=== PATIENT | male | born 1945 | race Caucasian/White ===

== ENCOUNTER → 2016-09-22 | Outpatient (CLI) | payer MEDICARE, MEDICAID ==
--- NOTE | 2016-09-23 21:43 | ECHO ---
DATE OF PROCEDURE: 09/22/2016 OUTPATIENT ECHOCARDIOGRAPHIC REPORT DATE OF : 1945 Outpatient. REFERRING PHYSICIAN: Anna Craft INDICATION: Hypertension. MEASUREMENTS: 2D Measurements: RV: 3.4 cm LV: 2.8 cm Septum: 1.3 cm Posterior wall: 1.3 cm Aortic root: 3.8 cm Proximal ascending aorta: 4.2 cm LA: 4.4 cm LVEF: 75% DOPPLER MEASUREMENTS: AV: 1.7 meters per second LVOT: 1.6 meters per second LVOT diameter: 2.5 cm MV-E 60, A: 81. EA ratio: 0.7 Early mitral deceleration time: 300 milliseconds E prime: 5.8, A prime: 9, E/E prime ratio: 10.4 PV: 0.8 meters per second Pulmonary artery acceleration time: 99 milliseconds RVSP: 34 mmHg IVC: 1.8 cm COMMENTS: Normal sinus rhythm/sinus bradycardia without intraventricular conduction disturbance. Mildly dilated left atrium but normal left ventricular size. Right heart chamber sizes were also normal. LV wall thickness was mildly increased symmetrically. On real-time imaging from the parasternal and apical projections, wall motion was symmetrical and hyperkinetic. Slightly thickened mitral annulus but normal leaflet thickness and excursion with no posterior systolic buckling. Three equal size aortic cusps with mildly thickened cusp edges but adequate cusp separation. Mildly dilated aortic root size and mildly dilated proximal ascending aorta. No apparent intracardiac mass or pericardial effusion. Color flow Doppler study taken from the parasternal and apical projection showed mild eccentrically directed aortic insufficiency with only trace mitral and very mild tricuspid insufficiency. Guided continuous wave Doppler of his aortic valve showed a normal peak systolic velocity against LV outflow tract obstruction. Pulsed and continuous wave Doppler of his LV inflow tract taken from the apical four-chamber projection showed normal diastolic filling velocities against mitral stenosis. There was more prominent late diastolic/atrial dependent filling pattern consistent with LV diastolic dysfunction. This was confirmed by prolonged early mitral deceleration time and tissue Doppler of his mitral annulus. However, his current estimated mean left atrial pressure was normal. Pulsed and continuous wave Doppler of his pulmonary trunk showed a normal peak systolic velocity against RV outflow tract obstruction. His pulmonary artery acceleration time was abbreviated suggestive of a mildly increased peak pulmonary vascular resistance. Guided continuous wave Doppler of his tricuspid valve allowed our estimation of his right ventricular systolic pressure (upper limits of normal to mildly increased). His inferior vena cava was of normal size with normal respiratory collapse against an elevated central venous pressure. CONCLUSIONS: Mild concentric left ventricular hypertrophy with hyperkinetic wall motion. Mildly dilated left atrium with Doppler evidence of impairment of LV diastolic function but currently normal estimated mean left atrial pressure. Normal right heart chamber sizes and contraction with Doppler sign of mild pulmonary hypertension. Normal IVC size and collapse against an elevated central venous pressure. Mild mitral annular thickening without functional valvular abnormality. Mild aortic valvular sclerosis without stenosis and only mildly insufficiency. Mildly dilated aortic root and proximal ascending aorta. We would recommend a followup study in 2 years time to reevaluate his aortic valve and proximal aortic diameters.
== END ==
LOC: M CARPUL 09:16
PROVIDERS: ATTEND Nurse Practitioner Family
DX: I10 Essential (primary) hypertension (principal)

== ENCOUNTER → 2016-10-07 | Outpatient (CLI) | payer MEDICARE, MEDICAID ==
[2016-10-07 14:09] LABS: BASO % 0.9 % (0.0-1.0); EOS # 0.3 K/mm3 (0.0-0.50); EOS % 5.1 % (0.0-3.0); LARGE UNSTAINED CELL # 0.2 K/mm3 (0.0-0.4); LARGE UNSTAINED CELL % 3.6 % (0.0-4.0); LYMPH % 50.2 % (24.0-44.0); MEAN CORPUSCULAR HEMOGLOBIN 34.6 pg (27.0-33.0); MEAN CORPUSCULAR HGB CONC 35.2 g/dl (32.0-36.5); MEAN CORPUSCULAR VOLUME 98.2 fl (80.0-96.0); MONO # 0.3 K/mm3 (0.0-0.8); NEUTROPHILS # 1.9 K/mm3 (1.8-7.7); NEUTROPHILS % 34.2 % (36.0-66.0); PLATELET COUNT, AUTOMATED 188 k/mm3 (150-450); RED CELL DISTRIBUTION WIDTH 13.2 % (11.5-14.5); WHITE BLOOD COUNT 5.6 K/mm3 (4.0-10.0)
[2016-10-07 14:29] LABS: ALBUMIN/GLOBULIN RATIO 1.29 (1.00-1.93); ALKALINE PHOSPHATASE 76 U/L (45-117); ALT/SGPT 46 U/L (12-78); ANION GAP 7 MEQ/L (8-16); AST/SGOT 26 U/L (15-37); BILIRUBIN,DIRECT 0.2 MG/DL (0.0-0.2); BILIRUBIN,TOTAL 0.7 MG/DL (0.2-1.0); BLOOD UREA NITROGEN 23 MG/DL (7-18); CALCIUM LEVEL 8.9 MG/DL (8.8-10.2); CARBON DIOXIDE LEVEL 31 MEQ/L (21-32); CHLORIDE LEVEL 105 MEQ/L (98-107); CREATININE FOR GFR 0.95 MG/DL (0.70-1.30); GLOMERULAR FILTRATION RATE > 60.0 (>49); GLUCOSE, FASTING 127 MG/DL (80-110); POTASSIUM SERUM 4.1 MEQ/L (3.5-5.1); SODIUM LEVEL 143 MEQ/L (136-145); TOTAL PROTEIN 7.1 GM/DL (6.4-8.2)
== END ==
LOC: M SMT 08:06
PROVIDERS: ATTEND Family Medicine
DX: E11.9 Type 2 diabetes mellitus without complications (principal); N40.1 Benign prostatic hyperplasia with lower urinary tract symptoms; I10 Essential (primary) hypertension; G47.33 Obstructive sleep apnea (adult) (pediatric); G47.00 Insomnia, unspecified; F32.1 Major depressive disorder, single episode, moderate
CPT/HCPCS: 36415; 80053; 82043; 82248; 83036; 85025; G0103; G0463

== ENCOUNTER → 2017-04-28 | Outpatient (REF) | payer MEDICARE, MEDICAID ==
[2017-04-28 16:11] LABS: ALBUMIN 4.2 GM/DL (3.2-5.2); ALBUMIN/GLOBULIN RATIO 1.24 (1.00-1.93); ALKALINE PHOSPHATASE 103 U/L (45-117); ALT/SGPT 34 U/L (12-78); ANION GAP 6 MEQ/L (8-16); AST/SGOT 21 U/L (7-37); BILIRUBIN,TOTAL 0.5 MG/DL (0.2-1.0); BLOOD UREA NITROGEN 16 MG/DL (7-18); CALCIUM LEVEL 8.9 MG/DL (8.8-10.2); CARBON DIOXIDE LEVEL 34 MEQ/L (21-32); CHLORIDE LEVEL 102 MEQ/L (98-107); CREATININE FOR GFR 0.88 MG/DL (0.70-1.30); GLOMERULAR FILTRATION RATE > 60.0 (>49); GLUCOSE, FASTING 93 MG/DL (70-100); POTASSIUM SERUM 4.1 MEQ/L (3.5-5.1); SODIUM LEVEL 142 MEQ/L (136-145); TOTAL PROTEIN 7.6 GM/DL (6.4-8.2)
[2017-04-28 16:13] LABS: ESTIMATED AVERAGE GLUCOSE 146 MG/DL (60-110); HEMOGLOBIN A1c 6.7 %
== END ==
LOC: M SFHCPLAZ 13:41
DX: I10 Essential (primary) hypertension (principal); E11.9 Type 2 diabetes mellitus without complications
CPT/HCPCS: 80053

== ENCOUNTER → 2017-05-02 | Outpatient (CLI) | payer MEDICARE, MEDICAID, OTHER ==
[2017-05-02 14:04] LABS: PSA SCREENING 0.19 NG/ML (< 4.0)
== END ==
LOC: M SMT 11:18
DX: Z12.5 Encounter for screening for malignant neoplasm of prostate (principal)
CPT/HCPCS: G0103

== ENCOUNTER → 2017-05-06 | Outpatient (CLI) | payer MEDICARE, OTHER | LOC: M SMT 12:29 | DX: N40.1 Benign prostatic hyperplasia with lower urinary tract symptoms (principal); R35.1 Nocturia | CPT/HCPCS: 76857 ==

== ENCOUNTER → 2017-10-17 | Outpatient (REF) | payer MEDICARE, MEDICAID ==
[2017-10-17 13:57] LABS: ALBUMIN 4.2 GM/DL (3.2-5.2); ALBUMIN/GLOBULIN RATIO 1.17 (1.00-1.93); ALKALINE PHOSPHATASE 73 U/L (45-117); ALT/SGPT 45 U/L (12-78); ANION GAP 8 MEQ/L (8-16); AST/SGOT 28 U/L (7-37); BILIRUBIN,TOTAL 0.6 MG/DL (0.2-1.0); BLOOD UREA NITROGEN 13 MG/DL (7-18); CARBON DIOXIDE LEVEL 32 MEQ/L (21-32); CHLORIDE LEVEL 102 MEQ/L (98-107); CHOLESTEROL LEVEL 85 MG/DL (<200); CHOLESTEROL RISK RATIO 2.023 (<5); CREATININE FOR GFR 0.86 MG/DL (0.70-1.30); GLOMERULAR FILTRATION RATE > 60.0 (>42); GLUCOSE, FASTING 127 MG/DL (70-100); HDL CHOLESTEROL 42 MG/DL (>40); LDL CHOLESTEROL 20.6 MG/DL (<100); NON-HDL-C 43 MG/DL; SODIUM LEVEL 142 MEQ/L (136-145); TOTAL PROTEIN 7.8 GM/DL (6.4-8.2); TRIGLYCERIDES LEVEL 112 MG/DL (<150)
[2017-10-17 14:02] LABS: CREATININE, URINE 15.1 MG/DL; MALB URINE SIEMENS 22.3 MG/L; MAU/CREAT RATIO 147.6 MCG/MG (0.0-30.0)
[2017-10-17 15:03] LABS: ESTIMATED AVERAGE GLUCOSE 140 MG/DL (60-110); HEMOGLOBIN A1c 6.5 %
== END ==
LOC: M SFHCPLAZ 10:10
DX: I10 Essential (primary) hypertension (principal); E11.9 Type 2 diabetes mellitus without complications; E78.1 Pure hyperglyceridemia
CPT/HCPCS: 80053

== ENCOUNTER → 2017-11-25 | Outpatient (CLI) | payer MEDICARE, MEDICAID | LOC: M SMT 15:03 | DX: E78.1 Pure hyperglyceridemia (principal); G47.00 Insomnia, unspecified; E11.40 Type 2 diabetes mellitus with diabetic neuropathy, unspecified | CPT/HCPCS: 84443 ==

== ENCOUNTER → 2018-02-03 | Outpatient (REF) | payer MEDICARE, MEDICAID ==
[2018-02-03 12:57] LABS: ALBUMIN 3.8 GM/DL (3.2-5.2); ALBUMIN/GLOBULIN RATIO 1.09 (1.00-1.93); ALKALINE PHOSPHATASE 79 U/L (45-117); ALT/SGPT 70 U/L (12-78); ANION GAP 7 MEQ/L (8-16); AST/SGOT 33 U/L (7-37); BILIRUBIN,TOTAL 0.6 MG/DL (0.2-1.0); BLOOD UREA NITROGEN 14 MG/DL (7-18); CALCIUM LEVEL 8.5 MG/DL (8.8-10.2); CARBON DIOXIDE LEVEL 33 MEQ/L (21-32); CHLORIDE LEVEL 101 MEQ/L (98-107); CREATININE FOR GFR 0.93 MG/DL (0.70-1.30); GLOMERULAR FILTRATION RATE > 60.0 (>42); GLUCOSE, FASTING 104 MG/DL (70-100); POTASSIUM SERUM 3.6 MEQ/L (3.5-5.1); SODIUM LEVEL 141 MEQ/L (136-145); TOTAL PROTEIN 7.3 GM/DL (6.4-8.2)
[2018-02-03 15:46] LABS: ESTIMATED AVERAGE GLUCOSE 154 MG/DL (60-110)
== END ==
LOC: M SFHCPLAZ 10:04
DX: E11.40 Type 2 diabetes mellitus with diabetic neuropathy, unspecified (principal)
CPT/HCPCS: 80053

== ENCOUNTER → 2018-04-14 | Outpatient (REF) | payer MEDICARE, MEDICAID | LOC: M SFHCPLAZ 17:21 | PROVIDERS: ATTEND Dermatology | DX: L30.8 Other specified dermatitis (principal) ==

== ENCOUNTER → 2018-05-11 | Outpatient (REF) | payer MEDICARE, MEDICAID ==
[2018-05-11 18:37] LABS: HEMOGLOBIN A1c 7.4 %
[2018-05-11 18:45] LABS: ALBUMIN 4.3 GM/DL (3.2-5.2); ALT/SGPT 53 U/L (12-78); BILIRUBIN,TOTAL 0.6 MG/DL (0.2-1.0); BLOOD UREA NITROGEN 16 MG/DL (7-18); CARBON DIOXIDE LEVEL 34 MEQ/L (21-32); CHLORIDE LEVEL 100 MEQ/L (98-107); CREATININE FOR GFR 0.94 MG/DL (0.70-1.30); GLOMERULAR FILTRATION RATE > 60.0 (>42); GLUCOSE, FASTING 132 MG/DL (70-100); POTASSIUM SERUM 3.5 MEQ/L (3.5-5.1); SODIUM LEVEL 140 MEQ/L (136-145); TOTAL PROTEIN 7.7 GM/DL (6.4-8.2)
== END ==
LOC: M SFHCPLAZ 15:36
PROVIDERS: ATTEND Nurse Practitioner Family
DX: I10 Essential (primary) hypertension (principal); E78.1 Pure hyperglyceridemia; E11.9 Type 2 diabetes mellitus without complications
CPT/HCPCS: 36415; 80053; 83036; G0463

== ENCOUNTER → 2018-08-07 | Outpatient (REF) | payer MEDICARE, MEDICAID ==
[2018-08-07 13:13] LABS: HEMOGLOBIN A1c 7.2 %
[2018-08-07 13:28] LABS: ALBUMIN 4.1 GM/DL (3.2-5.2); ALT/SGPT 64 U/L (12-78); BILIRUBIN,TOTAL 0.6 MG/DL (0.2-1.0); BLOOD UREA NITROGEN 13 MG/DL (7-18); CALCIUM LEVEL 9.3 MG/DL (8.8-10.2); CARBON DIOXIDE LEVEL 35 MEQ/L (21-32); CHLORIDE LEVEL 103 MEQ/L (98-107); CREATININE FOR GFR 0.89 MG/DL (0.70-1.30); GLOMERULAR FILTRATION RATE > 60.0 (>42); GLUCOSE, FASTING 107 MG/DL (70-100); POTASSIUM SERUM 3.4 MEQ/L (3.5-5.1); SODIUM LEVEL 142 MEQ/L (136-145); TOTAL PROTEIN 7.6 GM/DL (6.4-8.2)
== END ==
LOC: M SFHCPLAZ 10:49
PROVIDERS: ATTEND Nurse Practitioner Family
DX: I10 Essential (primary) hypertension (principal); E11.9 Type 2 diabetes mellitus without complications
CPT/HCPCS: 36415; 80053; 83036; G0463

== ENCOUNTER → 2019-07-30 | Outpatient (REF) | payer MEDICARE, MEDICAID ==
[2019-07-30 14:30] LABS: HEMOGLOBIN A1c 7.2 %
[2019-07-30 14:32] LABS: ALBUMIN 4.2 GM/DL (3.2-5.2); ALT/SGPT 68 U/L (12-78); BILIRUBIN,TOTAL 1.1 MG/DL (0.2-1.0); BLOOD UREA NITROGEN 28 MG/DL (7-18); CARBON DIOXIDE LEVEL 31 MEQ/L (21-32); CHLORIDE LEVEL 103 MEQ/L (98-107); CHOLESTEROL LEVEL 87 MG/DL (<200); CHOLESTEROL RISK RATIO 2.175 (<5); CREATININE FOR GFR 0.99 MG/DL (0.70-1.30); GLOMERULAR FILTRATION RATE > 60.0 (>42); GLUCOSE, FASTING 131 MG/DL (70-100); HDL CHOLESTEROL 40 MG/DL (>40); LDL CHOLESTEROL 35 MG/DL (<100); NON-HDL-C 47 MG/DL; POTASSIUM SERUM 3.9 MEQ/L (3.5-5.1); SODIUM LEVEL 139 MEQ/L (136-145); TOTAL PROTEIN 7.5 GM/DL (6.4-8.2); TRIGLYCERIDES LEVEL 62 MG/DL (<150)
== END ==
LOC: M PLALAB 11:13
PROVIDERS: ATTEND Family Medicine
DX: E11.40 Type 2 diabetes mellitus with diabetic neuropathy, unspecified (principal); I10 Essential (primary) hypertension; Z13.220 Encounter for screening for lipoid disorders

== ENCOUNTER 2019-09-27 13:10 | Inpatient (IN) | payer MEDICARE, MEDICAID ==
[2019-09-27] MEDS ORDERED: ISOVUE-370 76% 100ML VIAL As Ordered ONE (17:40)
[2019-09-28] MEDS ORDERED: GABAPENTIN 300 MG CAP As Ordered ONE ×2 (00:18→20:00)
[2019-09-28] MEDS ORDERED: HumaLOG INSULIN (NovoLOG) PER UNIT As Ordered ONE ×2 (13:04→18:34)
[2019-09-28] MEDS ORDERED: GABAPENTIN 300 MG CAP ONE (20:00)
[2019-09-29] MEDS ORDERED: LOSARTAN 50MG TABLET As Ordered ONE (11:58)
[2019-10-25 12:41] LABS: INR 1.12; PARTIAL THROMBOPLASTIN TIME 29.7 SECONDS (25.0-38.4); PROTHROMBIN TIME 14.7 SECONDS (11.8-14.0)
[2019-10-25 13:45] LABS: BASO % 0.3 % (0.0-1.0); EOS % 0.3 % (0.0-3.0); ERYTHROCYTE SEDIMENTATION RATE 35 mm/hr (0-20); HEMATOCRIT 34.3 % (42.0-52.0); HEMOGLOBIN 11.5 g/dl (13.5-17.5); LYMPH # 1.4 10^3/uL (1.5-5.0); LYMPH % 15.5 % (24.0-44.0); MEAN CORPUSCULAR HEMOGLOBIN 34.5 pg (27.0-33.0); MEAN CORPUSCULAR HGB CONC 33.5 g/dl (32.0-36.5); MONO # 0.5 10^3/uL (0.0-0.8); MONO % 6.1 % (0.0-5.0); NEUTROPHILS # 6.9 10^3/uL (1.5-8.5); NEUTROPHILS % 77.5 % (36.0-66.0); PLATELET COUNT, AUTOMATED 208 10^3/uL (150-450); RED BLOOD COUNT 3.33 10^6/uL (4.30-6.10); WHITE BLOOD COUNT 8.9 10^3/uL (4.0-10.0)
[2019-10-25 13:45] LABS: HEMATOCRIT 28.9 % (42.0-52.0); HEMOGLOBIN 9.6 g/dl (13.5-17.5)
--- NOTE | 2019-11-08 10:40 | ECGEPIP ---
SINUS RHYTHM WITH OCCASIONAL SUPRAVENTRICULAR PREMATURE COMPLEXES NONSPECIFIC T-WAVE ABNORMALITY BORDERLINE ECG SEE SCANNED DOWNTIME REPORT MTDD
[2019-11-11 17:40] LABS: ALBUMIN 3.4 GM/DL (3.2-5.2); ALT/SGPT 24 U/L (12-78); BILIRUBIN,DIRECT 0.1 MG/DL (0.0-0.2); BILIRUBIN,TOTAL 0.4 MG/DL (0.2-1.0); BLOOD UREA NITROGEN 22 MG/DL (7-18); C REACTIVE PROTEIN QUANTITATIV 1.66 MG/DL (0.00-0.30); CALCIUM LEVEL 8.3 MG/DL (8.8-10.2); CARBON DIOXIDE LEVEL 31 MEQ/L (21-32); CHLORIDE LEVEL 108 MEQ/L (98-107); CREATININE FOR GFR 1.19 MG/DL (0.70-1.30); GLOMERULAR FILTRATION RATE > 60.0 (>42); GLUCOSE, FASTING 205 MG/DL (70-100); POTASSIUM SERUM 3.7 MEQ/L (3.5-5.1); SODIUM LEVEL 142 MEQ/L (136-145); TOTAL PROTEIN 6.3 GM/DL (6.4-8.2)
[2019-11-14 21:09] LABS: HEMATOCRIT 22.9 % (42.0-52.0); HEMOGLOBIN 7.8 g/dl (13.5-17.5); MEAN CORPUSCULAR HEMOGLOBIN 32.9 pg (27.0-33.0); MEAN CORPUSCULAR HGB CONC 34.1 g/dl (32.0-36.5); MEAN CORPUSCULAR VOLUME 96.6 fl (80.0-96.0); PLATELET COUNT, AUTOMATED 142 10^3/uL (150-450); RED BLOOD COUNT 2.37 10^6/uL (4.30-6.10); WHITE BLOOD COUNT 5.9 10^3/uL (4.0-10.0)
[2019-11-14 21:12] LABS: BASO % 0.3 % (0.0-1.0); EOS % 0.4 % (0.0-3.0); HEMATOCRIT 27.6 % (42.0-52.0); HEMOGLOBIN 9.2 g/dl (13.5-17.5); LYMPH # 2.6 10^3/uL (1.5-5.0); LYMPH % 37.2 % (24.0-44.0); MEAN CORPUSCULAR HEMOGLOBIN 32.6 pg (27.0-33.0); MEAN CORPUSCULAR HGB CONC 33.3 g/dl (32.0-36.5); MEAN CORPUSCULAR VOLUME 97.9 fl (80.0-96.0); MONO # 0.4 10^3/uL (0.0-0.8); MONO % 6.2 % (0.0-5.0); NEUTROPHILS # 3.8 10^3/uL (1.5-8.5); NEUTROPHILS % 55.6 % (36.0-66.0); PLATELET COUNT, AUTOMATED 147 10^3/uL (150-450); RED BLOOD COUNT 2.82 10^6/uL (4.30-6.10); WHITE BLOOD COUNT 6.9 10^3/uL (4.0-10.0)
[2019-11-14 21:12] LABS: BASO % 0.3 % (0.0-1.0); EOS % 0.6 % (0.0-3.0); HEMATOCRIT 25.2 % (42.0-52.0); HEMOGLOBIN 8.5 g/dl (13.5-17.5); LYMPH # 2.5 10^3/uL (1.5-5.0); LYMPH % 39.4 % (24.0-44.0); MEAN CORPUSCULAR HEMOGLOBIN 32.8 pg (27.0-33.0); MEAN CORPUSCULAR HGB CONC 33.7 g/dl (32.0-36.5); MEAN CORPUSCULAR VOLUME 97.3 fl (80.0-96.0); MONO # 0.5 10^3/uL (0.0-0.8); MONO % 7.7 % (0.0-5.0); NEUTROPHILS # 3.2 10^3/uL (1.5-8.5); NEUTROPHILS % 51.8 % (36.0-66.0); PLATELET COUNT, AUTOMATED 148 10^3/uL (150-450); RED BLOOD COUNT 2.59 10^6/uL (4.30-6.10); WHITE BLOOD COUNT 6.2 10^3/uL (4.0-10.0)
[2019-11-14 21:13] LABS: HEMATOCRIT 27.1 % (42.0-52.0); HEMOGLOBIN 9.2 g/dl (13.5-17.5)
[2019-11-16 14:31] LABS: BASO % 0.5 % (0.0-1.0); EOS # 0.1 10^3/uL (0.0-0.5); EOS % 1.9 % (0.0-3.0); HEMATOCRIT 25.4 % (42.0-52.0); HEMOGLOBIN 8.6 g/dl (13.5-17.5); LYMPH # 2.3 10^3/uL (1.5-5.0); LYMPH % 40.6 % (24.0-44.0); MEAN CORPUSCULAR HGB CONC 33.9 g/dl (32.0-36.5); MEAN CORPUSCULAR VOLUME 97.3 fl (80.0-96.0); MONO # 0.3 10^3/uL (0.0-0.8); MONO % 5.7 % (0.0-5.0); NEUTROPHILS # 2.9 10^3/uL (1.5-8.5); NEUTROPHILS % 50.9 % (36.0-66.0); PLATELET COUNT, AUTOMATED 151 10^3/uL (150-450); RED BLOOD COUNT 2.61 10^6/uL (4.30-6.10); WHITE BLOOD COUNT 5.7 10^3/uL (4.0-10.0)
[2019-12-17 09:46] LABS: BLOOD UREA NITROGEN 20 MG/DL (7-18); CALCIUM LEVEL 7.3 MG/DL (8.8-10.2); CARBON DIOXIDE LEVEL 30 MEQ/L (21-32); CHLORIDE LEVEL 114 MEQ/L (98-107); CREATININE FOR GFR 0.79 MG/DL (0.70-1.30); GLOMERULAR FILTRATION RATE > 60.0 (>42); GLUCOSE, FASTING 112 MG/DL (70-100); POTASSIUM SERUM 3.8 MEQ/L (3.5-5.1); SODIUM LEVEL 146 MEQ/L (136-145)
[2019-12-17 12:54] LABS: HEMOGLOBIN A1c 6.3 %
[2019-12-24 19:44] LABS: BLOOD UREA NITROGEN 6 MG/DL (7-18); CARBON DIOXIDE LEVEL 31 mmol/L (20-29); CHLORIDE LEVEL 113 MEQ/L (98-107); GLOMERULAR FILTRATION RATE > 60.0 (>42); GLUCOSE, FASTING 100 MG/DL (70-100); POTASSIUM SERUM 3.7 MEQ/L (3.5-5.1); SODIUM LEVEL 147 MEQ/L (136-145)
[2019-12-24 19:45] LABS: CALCIUM LEVEL 7.8 MG/DL (8.8-10.2)
== END 2019-09-29 14:10 | disposition home or self-care (01) | DRG 378 ==
LOC: M ED 13:10 → M PCU 20:45
PROVIDERS: ADMIT Internal Medicine; ATTEND Internal Medicine
PROC: 30233N1 Transfusion of Nonautologous Red Blood Cells into Peripheral Vein, Percutaneous Approach (ICD-10-PCS; principal; 2019-09-27)
DX: K92.1 Melena (principal); D62 Acute posthemorrhagic anemia; I10 Essential (primary) hypertension; R00.0 Tachycardia, unspecified; R55 Syncope and collapse; N40.0 Benign prostatic hyperplasia without lower urinary tract symptoms; G47.33 Obstructive sleep apnea (adult) (pediatric); E11.9 Type 2 diabetes mellitus without complications; Z79.899 Other long term (current) drug therapy

== ENCOUNTER → 2019-12-06 | Outpatient (REF) | payer MEDICARE, MEDICAID ==
[~2019-12-06] MED LIST: AMLO1TAB25 PO; ATOR1TAB21 PO; COLA100C5 PO; DUTA1CAP2 PO; FERR325T16 PO; FERR325T3 PO; GABA-843 PO; IRBE150T14 PO; MED REC COMMENT; METF500T13 PO; PANT40TA29 PO; SENN8.6T58 PO; TAMS1CAP17 PO
== END ==
LOC: M SMT 12:58
PROVIDERS: ATTEND Urology
DX: N40.1 Benign prostatic hyperplasia with lower urinary tract symptoms (principal); R39.15 Urgency of urination

== ENCOUNTER 2019-12-11 16:43 | Inpatient (IN) | payer MEDICARE, MEDICAID ==
[~2019-12-11] VITALS: Ht 172.7 cm; Wt 92.1 kg
[2019-12-11] MEDS ORDERED: IRBE150T14 PO (16:55)
[2019-12-11] MEDS ORDERED: PANT40TA29 PO (16:55)
[2019-12-11] MEDS ORDERED: TAMS1CAP17 PO (16:55)
[2019-12-11] MEDS ORDERED: DUTA1CAP2 PO (16:55)
[2019-12-11] MEDS ORDERED: GABA-843 PO (16:55)
[2019-12-11] MEDS ORDERED: ATOR1TAB21 PO (16:55)
[2019-12-11] MEDS ORDERED: AMLO1TAB25 PO (16:55)
[2019-12-11] MEDS ORDERED: FERR325T3 PO (16:55)
[2019-12-11] MEDS ORDERED: METF500T13 PO (16:55)
[2019-12-11 17:33] LABS: BASO % 0.3 % (0.0-1.0); EOS % 0.3 % (0.0-3.0); HEMATOCRIT 39.5 % (42.0-52.0); HEMOGLOBIN 12.6 g/dl (13.5-17.5); LYMPH # 1.9 10^3/uL (1.5-5.0); LYMPH % 29.9 % (24.0-44.0); MEAN CORPUSCULAR HEMOGLOBIN 29.7 pg (27.0-33.0); MEAN CORPUSCULAR HGB CONC 31.9 g/dl (32.0-36.5); MEAN CORPUSCULAR VOLUME 93.2 fl (80.0-96.0); MONO # 0.5 10^3/uL (0.0-0.8); MONO % 7.9 % (0.0-5.0); NEUTROPHILS % 61.4 % (36.0-66.0); PLATELET COUNT, AUTOMATED 200 10^3/uL (150-450); RED BLOOD COUNT 4.24 10^6/uL (4.30-6.10); WHITE BLOOD COUNT 6.5 10^3/uL (4.0-10.0)
--- NOTE | 2019-12-11 17:48 | REPVR ---
PROCEDURE INFORMATION: Exam: XR Chest, 1 View Exam date and time: 12/11/2019 5:28 PM Age: 74 years old Clinical indication: Other: High BP; Additional info: Dyspnea/cough TECHNIQUE: Imaging protocol: XR of the chest Views: 1 view. COMPARISON: No relevant prior studies available. FINDINGS: Lungs: Unremarkable. No consolidation. Pleural space: Unremarkable. No pleural effusion. No pneumothorax. Heart/Mediastinum: Unremarkable. No cardiomegaly. Diaphragm: There is elevation of left hemidiaphragm. Bones/joints: Unremarkable. IMPRESSION: No acute findings. Electronically signed by: Jacob Hector On 12/11/2019 17:48:07 PM
[2019-12-11 18:00] LABS: ALBUMIN 4.1 GM/DL (3.2-5.2); BILIRUBIN,DIRECT 0.2 MG/DL (0.0-0.2); BILIRUBIN,TOTAL 0.6 MG/DL (0.2-1.0); TOTAL PROTEIN 7.7 GM/DL (6.4-8.2)
[2019-12-11] MEDS ORDERED: amLODIPine 10 MG TAB PO ONE (18:00)
[2019-12-11] MEDS ORDERED: POTASSIUM CHLORIDE 10 MEQ SR TABLET PO ONE (18:00)
[2019-12-11] MEDS ORDERED: FUROSEMIDE 40MG/4ML VIAL (J1940) IV ONE (18:00)
[2019-12-11] MEDS ORDERED: ISOVUE-370 76% 100ML VIAL As Ordered ONE (18:02)
--- NOTE | 2019-12-11 18:40 | REPVR ---
PROCEDURE INFORMATION: Exam: CT Angiography Chest With Contrast Exam date and time: 12/11/2019 6:16 PM Age: 74 years old Clinical indication: Chest pain TECHNIQUE: Imaging protocol: Computed tomographic angiography of the chest with intravenous contrast. 3D rendering (Not supervised by radiologist): MIP and/or 3D reconstructed images were created by the technologist. Radiation optimization: All CT scans at this facility use at least one of these dose optimization techniques: automated exposure control; mA and/or kV adjustment per patient size (includes targeted exams where dose is matched to clinical indication); or iterative reconstruction. Contrast material: ISO 370; Contrast volume: 75 ml; Contrast route: INTRAVENOUS (IV); COMPARISON: CR PORTABLE CHEST X-RAY 12/11/2019 5:17 PM FINDINGS: Pulmonary arteries: No evidence of pulmonary artery emboli. Aorta: No evidence of thoracic aortic aneurysm or dissection. Lungs: There is minor dependent atelectasis. No consolidation. Pleural space: Unremarkable. No pneumothorax. No pleural effusion. Heart: Unremarkable. No cardiomegaly. No pericardial effusion. Lymph nodes: Unremarkable. No enlarged lymph nodes. Gallbladder and bile ducts: The gallbladder is partly visible and there are calcified gallstones. Kidneys and ureters: The kidneys are partly visible in there is a 9 cm left renal upper pole simple cyst. Additional cysts are partly visualized. These were better evaluated on recent abdominal CT. Bones/joints: There are degenerative changes of the thoracic spine. No fracture. Soft tissues: Unremarkable. IMPRESSION: 1. No pulmonary emboli. 2. No acute findings. COMMENTS: Consistent with the [employer]'s Incidental Findings Committee white paper (J Am Katie Radiol 2018): Any incidental renal lesion less than 1 cm or classified as too small to characterize, or any incidental cystic renal lesion characterized as simple-appearing, is likely benign. No follow-up imaging is recommended for these lesions per consensus recommendations based on imaging criteria. Electronically signed by: Jacob Hector On 12/11/2019 18:40:12 PM
[2019-12-11] MEDS ORDERED: MED REC COMMENT (18:42)
[2019-12-11] MEDS ORDERED: MAALOX 30 ML SUSP *UDC PO PRN (19:45)
[2019-12-11] MEDS ORDERED: MOM 30ML SUSPENSION UDC PO PRN (19:45)
[2019-12-11] MEDS ORDERED: ACETAMINOPHEN TAB 650MG DOSE (2X325MG) PO PRN (19:45)
--- NOTE | 2019-12-11 19:59 | HPEPDOC ---
[facility] Medical History & Physical Date of Admission Dec 11, 2019 Date of Service: Dec 11, 2019 Primary Care Physician: Kenn Villanueva MD Attending Physician: HIEN MAHMOOD MD History and Physical TIME OF SERVICE: 8:27 PM CHIEF COMPLAINT: Shortness of breath and chest discomfort HISTORY OF PRESENT ILLNESS: This 74-year-old gentleman came to the hospital today for evaluation of transient mid chest discomfort associated with shortness of breath, headache, and lower back pain. He denied feeling dizzy, having blurry vision. He ran out of his blood pressure medications a few days ago, and called his PCPs office to have the medications refilled. According to the patient will take a few days for his medications to arrive. Per discussion with Dr. Cruz. His blood pressure was as high as 221/115 in the ER. The patient reports his systolic blood pressures usually in the 130s. Per Dr. Cruz despite a mildly elevated BNP the chest x-ray showed findings consistent with congestion including Kiersten b lines. CT of the chest was negative for dissection. She discussed these findings with Dr. Patton, who added that the patient had an echo done in 2017 that showed left ventricular hypertrophy, aortic insufficiency, diastolic dysfunction, and left atrial enlargement. He recommended admitting the patient, starting Lasix, amlodipine, repleting potassium and ordering another echo; he will see the patient in the morning. The patient reports urinating several times after receiving Lasix and that his back pain resolved after he received Lasix. REVIEW OF SYSTEMS: 12 point review of systems negative except as listed in HPI PAST MEDICAL/ SURGICAL HISTORY: History of noncompliance per Dr. Cruz Chronic hypertension NIDDM Chronic diastolic CHF Aortic insufficiency ASHLEY [id number] He denies having a CVA or HI SOCIAL HISTORY: He doesn't smoke He drinks alcohol socially He has a remote history of THC use FAMILY HISTORY: Mother had dementia Father had CAD and of massive heart attack ALLERGIES: Please see below. HOME MEDICATIONS: Please see below. PHYSICAL EXAMINATION: VITAL SIGNS: Please see below. GEN: well-nourished / well developed/ NAD INTEGUMENT: not flushed/ not jaundice /has multiple seborrheic keratosis on his back / decreased hair distribution on his lower legs HEENT: lips acyanotic /mucus membranes moist and pink CVS: RRR/NMRG/ radial pulses intact / no lower extremity edema LUNGS: able to speak full sentences without stopping to take a breath / no coughing / lungs are clear to auscultation bilaterally on room air ABDOMEN: Contour ( distended) / soft & not tender with palpation MSK/EXTREMITIES: NCAT / range of motion intact in all 4 extremities NEURO: CN 2-12 are grossly intact / speech is not dysarthric PSYCH: alert and oriented to person place and time/ able to understand and follow all commands LABORATORY DATA: 12/11/19 17:10 12/11/19 17:10: Immature Granulocyte % (Auto) 0.2, Neutrophils (%) (Auto) 61.4, Lymphocytes (%) (Auto) 29.9, Monocytes (%) (Auto) 7.9H, Eosinophils (%) (Auto) 0.3, Basophils (%) (Auto) 0.3, Neutrophils # (Auto) 4.0, Lymphocytes # (Auto) 1.9, Monocytes # (Auto) 0.5, Eosinophils # (Auto) 0.0, Basophils # (Auto) 0.0, Nucleated Red Blood Cells % (auto) 0.0, Total Bilirubin 0.6, Direct Bilirubin 0.2, Aspartate Amino Transf (AST/SGOT) 20, Alanine Aminotransferase (ALT/SGPT) 30, Alkaline Phosphatase 73, FA-Iof-G-Type Natriuretic Peptide 193H, Total Protein 7.7, Albumin 4.1, Albumin/Globulin Ratio 1.1 12/11/19 17:19: POC Troponin I (Misc) 0.01 12/11/19 17:26: POC Glucose (Misc Panel) 104, POC Sodium (Misc Panel) 140, POC Potassium (Misc Panel) 3.5, POC Chloride (Misc Panel) 99, POC Total CO2 (Misc Panel) 26.0, POC Blood Urea Nitrogen (Misc Panel 13, POC Ionized Calcium (Misc Panel) 4.8, POC Creatinine (Misc Panel) 1.0, POC Hematocrit (Misc Panel) 42.0 IMAGING: Chest x-ray "IMPRESSION: No acute findings" CTA chest "IMPRESSION: 1. No pulmonary emboli. 2. No acute findings." MICROBIOLOGY: Please see below. ASSESSMENT: Mr. Solorzano is a 74-year-old with a history of hypertension, ASHLEY, NIDDM, and chronic diastolic CHF, who will be admitted for management of hypertensive urgency. PLAN: 1. 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 showed sinus seng w a rate of 58 -Trop was 0.01 -Potassium, Cr & BUN were wnl Plan: admit to PCU / low salt diet / will aim for BP <160/100 tonight / resume amlodipine 10mg PO QHS / losartan 12.5mg PO QHS (he is allergic to lisinopril) / the day time team can liaise w regarding BP meds 2. Chronic Diastolic CHF Euvoemic Plan: f/u Is and Os / c/w c/w Lasix 40mg IV daily in the AM / day time team can f/u w on Echo results 3. NN Anemia Plan: f/u Iron studies and stool occult / pending results day time team may refer pt to GI for out pt c-scope if not recently done 4. NIDDM Plan: diabetic diet / f/u accuchecks & A1C / hypoglycemia protocol / sliding scale insulin / hold oral anti-glycemics 5. ASHLEY Plan: CPAP 6. Obesity BMI of 30.9 complicates care He has co-existing DM and ASHLEY He reports walking 1 mile per day Plan: encouraged patient to continue w current exercise regimen DVT PROPHYLAXIS: Lovenox DISPOSITION: possibly home tomorrow pending clinical course and Echo results Home Medications Scheduled Amlodipine Besylate (Amlodipine Besylate) 10 Mg Tablet, 10 MG PO DAILY Atorvastatin Calcium (Atorvastatin Calcium) 20 Mg Tablet, 20 MG PO QHS Docusate Sodium (Colace) 100 Mg Capsule, 100 MG PO QHS Dutasteride (Dutasteride) 0.5 Mg Capsule, 0.5 MG PO DAILY Ferrous Gluconate (Ferrous Gluconate) 324 Mg Tablet, 1 TAB PO DAILY for iron Gabapentin (Gabapentin) 300 Mg Capsule, 300 MG PO QHS Irbesartan/Hydrochlorothiazide (Irbesartan-Hctz 150-12.5 mg Tb) 1 Each Tablet, 1 TAB PO DAILY Metformin HCl (Metformin HCl) 500 Mg Tablet, 500 MG PO BID Sennosides (Senna) 8.6 Mg Tablet, 1 TAB PO QHS Tamsulosin Hcl (Tamsulosin HCl) 0.4 Mg Capsule, 0.4 MG PO QHS Miscellaneous Medications [Med Rec Comment] PT STATES NEEDS REFILLS ON MULTIPLE MEDS, HAS NOT TAKEN FOR APPROX 1 MONTH Allergies Coded Allergies: lisinopril (Verified Allergy, Severe, circumoral swelling, 12/11/19) Penicillins (Verified Allergy, Unknown, unknown childhood reaction, 12/11/19) A-FIB/CHADSVASC A-FIB History Current/History of A-Fib/PAF?: No Current PO Anticoag Therapy: No HIEN MAHMOOD MD Dec 11, 2019 19:59
[2019-12-11 20:42] LABS: HEMOGLOBIN A1c 6.2 %
[2019-12-11 20:43] LABS: PERCENT SATURATION 11.2 % (19.7-50.0)
[2019-12-11 20:50] LABS: FOLATE 15.2 NG/ML (>5.4)
[2019-12-11] MEDS ORDERED: GABAPENTIN 300 MG CAP PO SCH (21:00)
[2019-12-11] MEDS ORDERED: TAMSULOSIN 0.4 MG CAP PO SCH (21:00)
[2019-12-11] MEDS ORDERED: ATORVASTATIN 20 MG TAB PO SCH (21:00)
[2019-12-11] MEDS ORDERED: HumaLOG INSULIN (NovoLOG) PER UNIT SC SCH ×2 (21:00)
[2019-12-11] MEDS ORDERED: GLUCAGON INJ 1MG VIAL SC PRN (21:30)
[2019-12-11] MEDS ORDERED: GLUCOSE 4GM CHEW TABLET PO PRN (21:30)
[2019-12-11] MEDS ORDERED: DEXTROSE 50% 50 ML SYRINGE IV PRN (21:30)
[2019-12-11] MEDS ORDERED: PILL CUTTER 1 EACH XX PRN (22:00)
[2019-12-11] MEDS ORDERED: LOSARTAN 25 MG TAB PO SCH (23:00)
[2019-12-12] MEDS ORDERED: POTASSIUM CHLORIDE 10 MEQ SR TABLET PO ONE
--- NOTE | 2019-12-12 05:53 | ECGEPIP ---
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
[2019-12-12 06:58] LABS: HEMATOCRIT 38.9 % (42.0-52.0); HEMOGLOBIN 12.2 g/dl (13.5-17.5); MEAN CORPUSCULAR HEMOGLOBIN 29.2 pg (27.0-33.0); MEAN CORPUSCULAR HGB CONC 31.4 g/dl (32.0-36.5); MEAN CORPUSCULAR VOLUME 93.1 fl (80.0-96.0); PLATELET COUNT, AUTOMATED 188 10^3/uL (150-450); RED BLOOD COUNT 4.18 10^6/uL (4.30-6.10); WHITE BLOOD COUNT 5.5 10^3/uL (4.0-10.0)
[2019-12-12 07:24] LABS: BLOOD UREA NITROGEN 12 MG/DL (7-18); CALCIUM LEVEL 8.8 MG/DL (8.8-10.2); CARBON DIOXIDE LEVEL 31 MEQ/L (21-32); CHLORIDE LEVEL 104 MEQ/L (98-107); CREATININE FOR GFR 0.93 MG/DL (0.70-1.30); GLOMERULAR FILTRATION RATE > 60.0 (>42); GLUCOSE, FASTING 108 MG/DL (70-100); MAGNESIUM LEVEL 2.1 MG/DL (1.8-2.4); POTASSIUM SERUM 3.8 MEQ/L (3.5-5.1); SODIUM LEVEL 141 MEQ/L (136-145)
[2019-12-12] MEDS ORDERED: HumaLOG INSULIN (NovoLOG) PER UNIT SC SCH (07:30)
[2019-12-12] MEDS: HumaLOG INSULIN (NovoLOG) PER UNIT SC SCH ×2 (08:11→12:40)
[2019-12-12] MEDS: **hydrALAZINE HCL** 25 MG TAB PO SCH ×2 (08:54→12:39)
[2019-12-12] MEDS ORDERED: FUROSEMIDE 40MG/4ML VIAL (J1940) IV SCH (09:00)
[2019-12-12] MEDS ORDERED: FERROUS SULFATE 325MG TAB PO SCH (09:00)
[2019-12-12] MEDS ORDERED: ENOXAPARIN 40MG/0.4ML SYRINGE (J1650 PER 10MG) SC SCH (09:00)
[2019-12-12] MEDS ORDERED: amLODIPine 10 MG TAB PO SCH (09:00)
[2019-12-12] MEDS ORDERED: DOCUSATE SODIUM 100 MG CAP PO SCH (09:00)
[2019-12-12] MEDS ORDERED: DUTASTERIDE 0.5 MG CAP (AVODART) PO SCH (09:00)
[2019-12-12] MEDS ORDERED: LOSARTAN 25 MG TAB PO SCH (09:00)
[2019-12-12 14:29] VITALS: BP 177/86
[2019-12-12] MEDS ORDERED: AMLO1TAB25 PO (14:29)
[2019-12-12] MEDS ORDERED: IRBE150T14 PO (14:29)
[2019-12-12] MEDS ORDERED: COLA100C5 PO (14:30)
[2019-12-12] MEDS ORDERED: SENN8.6T58 PO (14:30)
[2019-12-12] MEDS ORDERED: FERR325T16 PO (14:30)
[2019-12-12 15:00] VITALS: BP 175/79
[2019-12-12] MEDS ORDERED: LOSARTAN 25 MG TAB PO ONE (15:00)
--- NOTE | 2019-12-12 15:18 | DS.PDOC ---
Discharge Summary General Date of Admission Dec 11, 2019 at 19:34 Date of Discharge 12/12/19 Discharge Summary PROCEDURES PERFORMED DURING STAY: [None]. DISCHARGE DIAGNOSES: Hypertensive urgency due to medication noncompliance Iron deficiency anemia SECONDARY DIAGNOSIS: ASHLEY on CPAP, DM, Chronic diastolic CHF, Obesity, diverticulosis, hemorrhoids, BPH, ACEI ANGIOEDEMA/URTICARIA COMPLICATIONS/CHIEF COMPLAINT: Hypertensive Urgency. HOSPITAL COURSE: Mr. Solorzano is a 74-year-old with a history of hypertension, ASHLEY, NIDDM, and chronic diastolic CHF, who will be admitted for management of hypertensive urgency as he ran out of his meds several days ago. He was restarted back on his blood pressure meds with improvement of his blood pressure. He was noted to be anemic, iron studies showed iron deficiency. He did received 2 units of blood transfusion in September 2019. He is due for repeat Colonoscopy. Discussed with his PMD and he is going to address this as an outpatient. DISCHARGE MEDICATIONS: Please see below. ALLERGIES: Please see below. PHYSICAL EXAMINATION ON DISCHARGE: VITAL SIGNS: Please see below. GEN: well-nourished / well developed/ NAD HEENT: lips acyanotic /mucus membranes moist and pink /anicteric eyes/moist mucous membranes CVS: RRR/NMRG/ radial pulses intact / no lower extremity edema LUNGS: lungs are clear to auscultation bilaterally on room air/diminished at the bases ABDOMEN: obese/soft & not tender with palpation NEURO: CN 2-12 are grossly intact / speech is not dysarthric PSYCH: alert and oriented to person place and time/ able to understand and follow all commands LABORATORY DATA: Please see below. ACTIVITY: [As tolerated]. DIET: 2 gm sodium, carb consistent DISCHARGE PLAN: Home DISCHARGE INSTRUCTIONS: Follow up with PMD in 1 week ITEMS TO FOLLOWUP ON ON OUTPATIENT: Anemia work up DISCHARGE CONDITION: [Stable]. TIME SPENT ON DISCHARGE: 35 minutes. Vital Signs/I&Os Vital Signs Date Time Temp Pulse Resp B/P (MAP) Pulse Ox O2 Delivery O2 Flow Rate FiO2 12/12/19 14:29 177/86 12/12/19 14:00 68 93 12/12/19 05:00 18 12/11/19 23:28 Full Face Mask 12/11/19 16:43 98.2 I&O- Last 24 Hours up to 6 AM 12/12/19 06:00 Output Total 1400 ml Balance -1400 ml Laboratory Data Labs 24H Laboratory Tests 2 12/11/19 17:10: Immature Granulocyte % (Auto) 0.2, Neutrophils (%) (Auto) 61.4, Lymphocytes (%) (Auto) 29.9, Monocytes (%) (Auto) 7.9H, Eosinophils (%) (Auto) 0.3, Basophils (%) (Auto) 0.3, Neutrophils # (Auto) 4.0, Lymphocytes # (Auto) 1.9, Monocytes # (Auto) 0.5, Eosinophils # (Auto) 0.0, Basophils # (Auto) 0.0, Nucleated Red Blood Cells % (auto) 0.0, Total Bilirubin 0.6, Direct Bilirubin 0.2, Aspartate Amino Transf (AST/SGOT) 20, Alanine Aminotransferase (ALT/SGPT) 30, Alkaline Phosphatase 73, SX-Wgc-W-Type Natriuretic Peptide 193H, Total Protein 7.7, Albumin 4.1, Albumin/Globulin Ratio 1.1 12/11/19 17:19: POC Troponin I (Misc) 0.01 12/11/19 17:26: POC Glucose (Misc Panel) 104, POC Sodium (Misc Panel) 140, POC Potassium (Misc Panel) 3.5, POC Chloride (Misc Panel) 99, POC Total CO2 (Misc Panel) 26.0, POC Blood Urea Nitrogen (Misc Panel 13, POC Ionized Calcium (Misc Panel) 4.8, POC Cr eatinine (Misc Panel) 1.0, POC Hematocrit (Misc Panel) 42.0 12/11/19 20:07: Estimated Mean Plasma Glucose 131H, Hemoglobin A1c 6.2, Iron Level 56L, Total Iron Binding Capacity 499H, Transferrin % Saturation 11.2L, Ferritin 8L, Vitamin B12 Level 390, Folate 15.2 12/12/19 06:29: Nucleated Red Blood Cells % (auto) 0.0, Anion Gap 6L, Glomerular Filtration Rate > 60.0, Estimated Mean Plasma Glucose 126H, Hemoglobin A1c 6.0, Calcium Level 8.8, Magnesium Level 2.1 12/12/19 12:07: Bedside Glucose (Misc Panel) 105 CBC/BMP Laboratory Tests 12/11/19 17:10 12/12/19 06:29 FSBS Laboratory Tests Test 10/21/20 12:07 Range/Units Bedside Glucose (Misc Panel) 105 83-110 MG/DL Discharge Medications Scheduled Amlodipine Besylate (Amlodipine Besylate) 10 Mg Tablet, 10 MG PO DAILY Atorvastatin Calcium (Atorvastatin Calcium) 20 Mg Tablet, 20 MG PO QHS, (Reported) Docusate Sodium (Colace) 100 Mg Capsule, 100 MG PO QHS Dutasteride (Dutasteride) 0.5 Mg Capsule, 0.5 MG PO DAILY, (Reported) Ferrous Gluconate (Ferrous Gluconate) 324 Mg Tablet, 1 TAB PO DAILY for iron Gabapentin (Gabapentin) 300 Mg Capsule, 300 MG PO QHS, (Reported) Irbesartan/Hydrochlorothiazide (Irbesartan-Hctz 150-12.5 mg Tb) 1 Each Tablet, 1 TAB PO DAILY Metformin HCl (Metformin HCl) 500 Mg Tablet, 500 MG PO BID, (Reported) Sennosides (Senna) 8.6 Mg Tablet, 1 TAB PO QHS Tamsulosin Hcl (Tamsulosin HCl) 0.4 Mg Capsule, 0.4 MG PO QHS, (Reported) Miscellaneous Medications [Med Rec Comment] , (Reported) PT STATES NEEDS REFILLS ON MULTIPLE MEDS, HAS NOT TAKEN FOR APPROX 1 MONTH Allergies Coded Allergies: lisinopril (Verified Allergy, Severe, circumoral swelling, 12/11/19) Penicillins (Verified Allergy, Unknown, unknown childhood reaction, 12/11/19) GEORGETTE POST MD Dec 12, 2019 15:18
--- NOTE | 2019-12-13 13:45 | ECHO ---
DATE OF PROCEDURE: 12/12/2019 Age: 74 Gender: Male Height: 68 inches Weight: 202 pounds Body surface area: 2.06 m2 PATIENT LOCATION: Inpatient in the emergency room. REFERRING PHYSICIAN: Luly Braxton MD. INDICATION: Hypertensive emergency/shortness of breath. MEASUREMENTS: 2D Measurements: RV 4.1 cm LV 4.0 cm Septum 1.3 cm Posterior wall 1.3 cm Aortic Root 3.6 cm LA 4.4 cm LVEF 65% Doppler Measurements: AV 1.58 m/s LVOT 0.97 m/s LVOT diameter 2.0 cm MV-E 66, A 56, E/A ratio 1.2 Early mitral deceleration time 169 m/s E prime medial 4.8, A prime medial 8.4, E prime lateral 7.1 Average E/E prime ratio 9.2/PCWP 13.4 mmHg PV 0.7 m/s Pulmonary artery acceleration time 124 m/s PASP 26 mmHg IVC 1.6 cm COMMENTS: Sinus bradycardia without intraventricular conduction disturbance. Technically difficult study in light of the patients body habitus, but diagnostically useful information was still obtained. M-mode and two-dimensional echocardiography was performed with pulse, continuous wave, color flow, and tissue Doppler studies. Mild concentric left ventricular hypertrophy with normal wall motion. Mildly dilated left atrium with currently grade 2 left ventricular (LV) diastolic dysfunction yet normal estimated mean left atrial pressure at this time. Right heart chamber is upper limits of normal with normal wall motion and current Doppler assessment of pulmonary arterial pressure. Normal inferior vena cava (IVC) size and collapse against an elevated central venous pressure. Normal aortic dimensions. Mild aortic valvular sclerosis without stenosis and only very mild insufficiency. Mild mitral annular thickening, but normal leaflet thickness and excursion without functional valvular abnormality. Normal appearing tricuspid valve with very mild insufficiency. Unable to rule out an intracardiac mass because of image quality. No pericardial effusion. MTDD
== END 2019-12-12 15:30 | disposition home or self-care (01) | DRG 305 ==
LOC: M ED 16:43 → M ED INP 19:34 → ENRESERV 12-12 15:23
PROVIDERS: ADMIT Internal Medicine; ATTEND Internal Medicine Nephrology
DX: I16.0 Hypertensive urgency (principal); I50.32 Chronic diastolic (congestive) heart failure; D50.9 Iron deficiency anemia, unspecified; E11.9 Type 2 diabetes mellitus without complications; G47.33 Obstructive sleep apnea (adult) (pediatric); E66.9 Obesity, unspecified; Z68.30 Body mass index [BMI] 30.0-30.9, adult; I35.1 Nonrheumatic aortic (valve) insufficiency; N40.0 Benign prostatic hyperplasia without lower urinary tract symptoms; K64.8 Other hemorrhoids; Z91.14 Patient's other noncompliance with medication regimen; Z79.84 Long term (current) use of oral hypoglycemic drugs; Z79.899 Other long term (current) drug therapy; Z88.0 Allergy status to penicillin; Z88.8 Allergy status to other drugs, medicaments and biological substances

== ENCOUNTER 2019-12-12 21:14 | Emergency (ER) | payer MEDICARE, MEDICAID ==
[~2019-12-12] VITALS: Ht 175.3 cm; Wt 89.4 kg
[2019-12-12] MEDS ORDERED: FUROSEMIDE 40MG/4ML VIAL (J1940) IV ONE (23:15)
[2019-12-12] MEDS ORDERED: ATORVASTATIN 20 MG TAB PO ONE (23:30)
[2019-12-13 00:11] LABS: BASO % 0.5 % (0.0-1.0); EOS # 0.1 10^3/uL (0.0-0.5); HEMATOCRIT 39.1 % (42.0-52.0); HEMOGLOBIN 12.5 g/dl (13.5-17.5); MEAN CORPUSCULAR HEMOGLOBIN 29.8 pg (27.0-33.0); MEAN CORPUSCULAR VOLUME 93.3 fl (80.0-96.0); MONO # 0.6 10^3/uL (0.0-0.8); MONO % 10.1 % (0.0-5.0); NEUTROPHILS # 3.5 10^3/uL (1.5-8.5); NEUTROPHILS % 55.6 % (36.0-66.0); PLATELET COUNT, AUTOMATED 185 10^3/uL (150-450); RED BLOOD COUNT 4.19 10^6/uL (4.30-6.10); WHITE BLOOD COUNT 6.3 10^3/uL (4.0-10.0)
[2019-12-13 00:19] LABS: BLOOD UREA NITROGEN 16 MG/DL (7-18); CALCIUM LEVEL 8.7 MG/DL (8.8-10.2); CARBON DIOXIDE LEVEL 31 MEQ/L (21-32); CHLORIDE LEVEL 103 MEQ/L (98-107); CK-MB VALUE MASS 5.7 NG/ML (<3.6); CPK CREATINE PHOSPHOKINASE 285 U/L (39-308); GLOMERULAR FILTRATION RATE > 60.0 (>42); GLUCOSE, FASTING 102 MG/DL (70-100); NT-PRO BNP 134 PG/ML (<125); POTASSIUM SERUM 3.7 MEQ/L (3.5-5.1); SODIUM LEVEL 140 MEQ/L (136-145); TROPONIN I 0.14 NG/ML (< 0.10)
--- NOTE | 2019-12-13 00:27 | REPVR ---
PROCEDURE INFORMATION: Exam: XR Chest, 2 Views Exam date and time: 12/12/2019 12:01 AM Age: 74 years old Clinical indication: Cough; Additional info: Dyspnea/cough TECHNIQUE: Imaging protocol: XR of the chest Views: 2 views. COMPARISON: CR PORTABLE CHEST X-RAY 12/11/2019 5:17 PM FINDINGS: Lungs: Unremarkable. No consolidation. Pleural space: Unremarkable. No pleural effusion. No pneumothorax. Heart/Mediastinum: Unremarkable. No cardiomegaly. Diaphragm: Severely elevated left hemidiaphragm. Bones/joints: Spondylosis of the spine. No acute fracture. IMPRESSION: 1. No acute infiltrate. 2. Severely elevated left hemidiaphragm. Electronically signed by: Nolvia Reeves On 12/13/2019 00:27:42 AM
[2019-12-13] MEDS ORDERED: ASPIRIN 325 MG TAB PO ONE (02:15)
[2019-12-13] MEDS ORDERED: HEPARIN SOD (PORCINE) 5000UNITS/ML 1ML VIAL/SYRINGE IV STA (02:38)
[2019-12-13] MEDS ORDERED: HEPARIN SOD (PORCINE) 5000UNITS/ML 1ML VIAL/SYRINGE IV PRN (02:45)
[2019-12-13] MEDS ORDERED: HEPARIN SOD (PORCINE) 5000UNITS/ML 1ML VIAL/SYRINGE IV ONE (02:45)
[2019-12-13] MEDS ORDERED: HEPARIN DRIP 25,000 UNITS in IV 1 EA IV SCH (02:50)
[2019-12-13 03:27] LABS: INR 1.02; PROTHROMBIN TIME 13.6 SECONDS (12.5-14.3)
[2019-12-13 03:28] LABS: PARTIAL THROMBOPLASTIN TIME 32.6 SECONDS (24.2-38.5)
[2019-12-13 04:09] VITALS: BP 128/73
--- NOTE | 2019-12-14 20:12 | ECGEPIP ---
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
== END 2019-12-13 04:14 | disposition short-term general hospital (02) ==
LOC: M ED 21:14
DX: I21.4 Non-ST elevation (NSTEMI) myocardial infarction (principal); I11.0 Hypertensive heart disease with heart failure; I50.9 Heart failure, unspecified; R79.89 Other specified abnormal findings of blood chemistry; E11.9 Type 2 diabetes mellitus without complications; Z88.0 Allergy status to penicillin; Z88.8 Allergy status to other drugs, medicaments and biological substances
CPT/HCPCS: 71046; 80048; 82550; 82553; 83880; 84484; 85025; 85610; 85730; 93005; 93041; 94760; 96365; 96375; 99285; J1644; J1940

== ENCOUNTER 2019-12-16 15:57 | Emergency (ER) | payer MEDICARE, MEDICAID ==
[~2019-12-16] VITALS: Ht 175.3 cm; Wt 91.6 kg
[2019-12-16 16:35] LABS: BASO % 0.4 % (0.0-1.0); EOS # 0.1 10^3/uL (0.0-0.5); EOS % 1.1 % (0.0-3.0); HEMOGLOBIN 11.8 g/dl (13.5-17.5); LYMPH # 1.5 10^3/uL (1.5-5.0); LYMPH % 28.1 % (24.0-44.0); MEAN CORPUSCULAR HEMOGLOBIN 29.1 pg (27.0-33.0); MEAN CORPUSCULAR HGB CONC 31.1 g/dl (32.0-36.5); MEAN CORPUSCULAR VOLUME 93.8 fl (80.0-96.0); MONO # 0.5 10^3/uL (0.0-0.8); MONO % 8.8 % (0.0-5.0); NEUTROPHILS # 3.2 10^3/uL (1.5-8.5); NEUTROPHILS % 61.4 % (36.0-66.0); PLATELET COUNT, AUTOMATED 181 10^3/uL (150-450); RED BLOOD COUNT 4.05 10^6/uL (4.30-6.10); WHITE BLOOD COUNT 5.2 10^3/uL (4.0-10.0)
--- NOTE | 2019-12-16 16:37 | REP ---
INDICATION: DYSPNEA/COUGH COMPARISON: 12/12/2019 TECHNIQUE: Portable AP view of the chest FINDINGS: Stable elevation to the left hemidiaphragm again noted. The cardiac silhouette and mediastinum are normal. The lung hanna demonstrate chronic appearing interstitial changes without focal consolidation, effusion, or pneumothorax. Skeletal structures are intact. IMPRESSION: Chronic stable changes. No acute cardiopulmonary process appreciated <Electronically signed by Naresh Jolly > 12/16/19 [id number]
[2019-12-16 16:43] LABS: INR 0.96
[2019-12-16 16:44] LABS: PARTIAL THROMBOPLASTIN TIME 31.5 SECONDS (24.2-38.5)
[2019-12-16 17:15] LABS: ALBUMIN 4.1 GM/DL (3.2-5.2); ALT/SGPT 31 U/L (12-78); BILIRUBIN,DIRECT 0.2 MG/DL (0.0-0.2); BILIRUBIN,TOTAL 0.5 MG/DL (0.2-1.0); BLOOD UREA NITROGEN 18 MG/DL (7-18); CALCIUM LEVEL 8.6 MG/DL (8.8-10.2); CARBON DIOXIDE LEVEL 27 MEQ/L (21-32); CHLORIDE LEVEL 105 MEQ/L (98-107); CK-MB VALUE MASS 6.9 NG/ML (<3.6); CPK CREATINE PHOSPHOKINASE 348 U/L (39-308); CREATININE FOR GFR 1.18 MG/DL (0.70-1.30); GLOMERULAR FILTRATION RATE > 60.0 (>42); GLUCOSE, FASTING 91 MG/DL (70-100); MB/CK RELATIVE INDEX 1.98 (< OR =4); NT-PRO BNP 21 PG/ML (<125); POTASSIUM SERUM 4.1 MEQ/L (3.5-5.1); SODIUM LEVEL 139 MEQ/L (136-145); TOTAL PROTEIN 7.6 GM/DL (6.4-8.2)
[2019-12-16 19:54] LABS: CK-MB VALUE MASS 6.1 NG/ML (<3.6); MB/CK RELATIVE INDEX 2.13 (< OR =4); TROPONIN I 0.09 NG/ML (< 0.10)
[2019-12-16 21:00] VITALS: BP 154/72
--- NOTE | 2019-12-18 09:02 | ECGEPIP ---
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
--- NOTE | 2019-12-18 09:05 | ECGEPIP ---
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
== END 2019-12-16 21:19 | disposition home or self-care (01) ==
LOC: M ED 15:57
DX: R06.00 Dyspnea, unspecified (principal); R53.83 Other fatigue; I10 Essential (primary) hypertension; Z79.899 Other long term (current) drug therapy; Z79.84 Long term (current) use of oral hypoglycemic drugs; Z88.0 Allergy status to penicillin; Z88.8 Allergy status to other drugs, medicaments and biological substances

== ENCOUNTER → 2020-03-04 | Outpatient (REF) | payer MEDICARE, MEDICAID ==
[~2020-03-04] MED LIST changes: +GABA-282 PO; -GABA-843 PO
[2020-03-04 13:58] LABS: HEMATOCRIT 42.9 % (42.0-52.0); HEMOGLOBIN 14.7 g/dl (13.5-17.5); MEAN CORPUSCULAR HEMOGLOBIN 33.4 pg (27.0-33.0); MEAN CORPUSCULAR HGB CONC 34.3 g/dl (32.0-36.5); MEAN CORPUSCULAR VOLUME 97.5 fl (80.0-96.0); PLATELET COUNT, AUTOMATED 219 10^3/uL (150-450); WHITE BLOOD COUNT 4.6 10^3/uL (4.0-10.0)
[2020-03-04 16:22] LABS: PERCENT SATURATION 25.1 % (19.7-50.0)
[2020-03-04 16:35] LABS: MALB URINE SIEMENS 79.8 MG/L; MAU/CREAT RATIO 63.8 MCG/MG (0.0-30.0)
[2020-03-04 16:40] LABS: HEMOGLOBIN A1c 6.6 %
== END ==
LOC: M PLALAB 10:44
PROVIDERS: ATTEND Family Medicine
DX: N40.1 Benign prostatic hyperplasia with lower urinary tract symptoms (principal); E11.9 Type 2 diabetes mellitus without complications

== ENCOUNTER → 2020-07-03 | Outpatient (REF) | payer MEDICARE, MEDICAID ==
[~2020-07-03] MED LIST changes: +FERR324T21 PO; -FERR325T16 PO
[2020-07-03 15:41] LABS: MAU/CREAT RATIO 251.5 MCG/MG (0.0-30.0)
== END ==
LOC: M SFHCPLAZ 13:28
PROVIDERS: ATTEND Family Medicine
DX: E78.1 Pure hyperglyceridemia (principal)
CPT/HCPCS: 82043; G0463

== ENCOUNTER 2020-09-13 14:43 | Emergency (ER) | payer MEDICARE, MEDICAID ==
[~2020-09-13] VITALS: Ht 175.3 cm; Wt 90.9 kg
[2020-09-13 17:30] LABS: VENOUS BASE EXCESS 4.4 (-2.0-2.0); VENOUS HCO3 31.1 MEQ/L (23.0-27.0); VENOUS O2 SATURATION 44.3 % (60.0-80.0); VENOUS PARTIAL PRESSURE CO2 54.8 mmHg (38.0-50.0); VENOUS PARTIAL PRESSURE O2 24.6 mmHg (30.0-50.0); VENOUS PH 7.372 UNITS (7.330-7.430); VENOUS STANDARD HCO3 26.9 MEQ/L; VENOUS TOTAL CO2 32.8 MEQ/L (24.0-28.0)
[2020-09-13 17:37] LABS: BASO % 0.3 % (0.0-1.0); EOS % 0.5 % (0.0-3.0); HEMATOCRIT 42.2 % (42.0-52.0); HEMOGLOBIN 14.7 g/dl (13.5-17.5); LYMPH # 1.7 10^3/uL (1.5-5.0); LYMPH % 27.3 % (24.0-44.0); MEAN CORPUSCULAR HEMOGLOBIN 34.3 pg (27.0-33.0); MEAN CORPUSCULAR HGB CONC 34.8 g/dl (32.0-36.5); MEAN CORPUSCULAR VOLUME 98.4 fl (80.0-96.0); MONO # 0.7 10^3/uL (0.0-0.8); NEUTROPHILS # 3.7 10^3/uL (1.5-8.5); NEUTROPHILS % 60.7 % (36.0-66.0); PLATELET COUNT, AUTOMATED 222 10^3/uL (150-450); RED BLOOD COUNT 4.29 10^6/uL (4.30-6.10); WHITE BLOOD COUNT 6.1 10^3/uL (4.0-10.0)
--- NOTE | 2020-09-13 17:52 | REPVR ---
PROCEDURE INFORMATION: Exam: XR Right Knee Exam date and time: 09/13/2020 5:16 PM Age: 74 years old Clinical indication: Other: Pain/swelling; Additional info: Pain/swelling ? effusion TECHNIQUE: Imaging protocol: XR Right knee. Views: 4 or more views. COMPARISON: CR KNEE COMPLETE 01/30/2015 9:56 AM FINDINGS: Bones/joints: Large knee joint effusion is suspected based on the lateral projection. Bones are aligned normally with decreased mineralization. No fracture, evidence of stress fracture or osteochondral lesion. Tricompartmental joint space narrowing and marginal spurring is consistent with OA. Incidental chondrocalcinosis changes and vascular calcifications. Calcification within joint fluid in the suprapatellar and posterior recesses. Soft tissues: No effacement of subcutaneous soft tissue planes. IMPRESSION: Tricompartmental osteoarthrosis of the knee with large joint effusion and with intracapsular and periarticular calcifications. Joint bodies related to the degenerative change cannot be excluded Electronically signed by: Rio Chand On 09/13/2020 17:51:44 PM
[2020-09-13 18:03] LABS: OSMOLALITY SERUM 290 MOSM/KG (280-301)
[2020-09-13 18:14] LABS: HEMOGLOBIN A1c 6.6 %
[2020-09-13 18:36] LABS: ERYTHROCYTE SEDIMENTATION RATE 20 mm/hr (0-20)
[2020-09-13 18:40] LABS: BLOOD UREA NITROGEN 19 MG/DL (7-18); GLUCOSE, FASTING 97 MG/DL (70-100)
[2020-09-13 18:41] LABS: ALT/SGPT 45 IU/L (0-32); CALCIUM LEVEL 8.9 MG/DL (8.8-10.2); CARBON DIOXIDE LEVEL 30 mmol/L (20-29); CHLORIDE LEVEL 104 MEQ/L (98-107); CK-MB VALUE MASS 3.2 NG/ML (<3.6); CPK CREATINE PHOSPHOKINASE 551 U/L (39-308); CREATININE FOR GFR 0.99 MG/DL (0.70-1.30); GLOMERULAR FILTRATION RATE > 60.0 (>42); MB/CK RELATIVE INDEX 0.58 (< OR =4); POTASSIUM SERUM 4.1 MEQ/L (3.5-5.1); SODIUM LEVEL 142 MEQ/L (136-145)
[2020-09-13 18:42] LABS: ALBUMIN 4.1 GM/DL (3.2-5.2); BILIRUBIN,DIRECT 0.3 MG/DL (0.0-0.2); BILIRUBIN,TOTAL 0.8 MG/DL (0.2-1.0); TOTAL PROTEIN 7.8 GM/DL (6.4-8.2); URIC ACID 4.3 MG/DL (3.5-7.2)
[2020-09-13 18:43] LABS: LIPASE 172 U/L (73-393); TROPONIN I 0.04 NG/ML (< 0.10)
[2020-09-13 18:49] LABS: ACETONE/KETONE 1.35 MG/DL (<2.81)
[2020-09-13 19:06] LABS: C REACTIVE PROTEIN QUANTITATIV 1.06 MG/DL (0.00-0.30)
[2020-09-13 21:11] LABS: SOURCE, BODY FLUID RT KNEE; SYNOVIAL FLUID COLOR YELLOW (COLORLESS)
[2020-09-13 21:24] LABS: CRYSTALS, BODY FLUID CA PYROPHOSPHATE (NONE SEEN); SOURCE, BODY FLUID CRYSTALS RT KNEE
[2020-09-13 21:26] LABS: SOURCE, BODY FLUID GLUCOSE RT KNEE
--- NOTE | 2020-09-13 21:36 | ECGEPIP ---
[facility] - ED Test Date: 2020-09-13 Pat Name: CHARLIE MARISCAL Department: Room: - Gender: Male Laboratory Specialist: MELISSA : 1945 Requested By: HOLDEN NIEVES PA-C Order Number: [id number] Reading MD: Latosha Oquendo Measurements Intervals [place] Rate: 64 P: 34 ME: 182 QRS: 43 QRSD: 98 T: 141 QT: 430 QTc: 443 Interpretive Statements Normal sinus rhythm Nonspecific T wave abnormality similar 12/16/19 Electronically Signed on 09-13-2020 21:36:11 EDT by Latosha Oquendo
[2020-09-13] MEDS ORDERED: NAPR500T6 PO (22:29)
[2020-09-13 22:57] VITALS: BP 156/79
--- NOTE | 2020-09-15 07:15 | ER ---
ER CONSULTATION DATE: 09/13/2020 TIME: About 8 p.m. CONSULTED SERVICE: Orthopaedic surgery. CONSULTED PHYSICIAN: Delfino Chase MD HISTORY OF PRESENT ILLNESS: This was a 74-year-old male who presented with a right knee effusion and difficulty with ambulation on arrival. The patient had a history of right knee osteoarthritis for which he had seen the [facility] 5 years prior. Patient presented to the [facility] Emergency Department after having increased difficulty walking and increased knee effusion. Orthopaedic surgery was consulted for further evaluation and treatment of the patient's right knee pain and right knee effusion. PAST MEDICAL HISTORY: Includes diabetes, right knee osteoarthritis, enlarged prostate, diverticulosis of the colon, hypertension, allergy to penicillin, type 2 diabetes, hyperlipidemia, depression, insomnia, obesity, polyuria. PAST SURGERIES: Unknown. ALLERGIES: PENICILLIN. SOCIAL HISTORY: Patient denies IV drug use, social drinking, unknown smoking history. REVIEW OF SYSTEMS: 14-point review of systems was negative unless as otherwise described in the history of present illness (HPI) above. PHYSICAL EXAMINATION: Alert and oriented to person, time and place, was resting comfortably on arrival. His right knee had an obvious effusion about the lateral medial aspect. Patient had difficulty with ambulation and pain with axial load of the right lower extremity. Patient's right lower extremity had 5/5 motor strength to the extensor hallucis longus (EHL), flexor hallucis longus (FHL), tibialis anterior, gastrocnemius, and peroneal musculature. Sensation was intact to light touch to the deep and superficial peroneal, sural, saphenous, and tibial nerve distributions. He had 2+ dorsalis pedis and posterior tibialis pulse and brisk capillary refill to the digits of his foot. Radiographs demonstrated a calcium buildup within the medial and lateral meniscus. He had tricompartmental osteoarthritis of the medial, lateral, and patellofemoral joints. He had significant bone loss about the three compartments as well as sclerotic changes and osteophytic lipping about the medial and lateral compartments. He had significant lateral translation of the patellofemoral joint with significant osteophyte buildup on the patellofemoral joint. No fractures were appreciated. LABORATORIES: Patient had a right knee aspiration which yielded 7053 white blood cells. He also had positive crystals consistent with calcium pyrophosphate or pseudogout. The patient was counseled on the risks and benefits of the knee aspiration to include nerve damage, blood loss, infection. Despite these risks, patient proceeded to verbally consent to the right knee aspiration. IMPRESSION: Patient has right knee pseudogout requiring medical interventions as described below. PLAN: At this point in time, the patient was diagnosed with right knee pseudogout given his knee aspiration findings. The patient did not have a septic knee as his white blood cell count was especially lower than the cutoff of 50,000, yielding only 7000. However, it was significant for crystals consistent with pseudogout. I recommend medical management at this point in time to include a nonsteroidal anti-inflammatory drug (NSAID) for acute management to include indomethacin versus colchicine. However, given his significant medical comorbidities, I would suggest that internal medicine evaluate his kidney function prior to administering heavy doses of non-steroidal anti-inflammatory drugs (NSAIDs). After acute management and treatment, the patient will likely require chronic medical management of his gout to include allopurinol if the patient is medically cleared. The patient will likely need an outpatient referral to rheumatology for continuing treatment of his pseudogout of the right knee. Thank you for this interesting consult. The patient will likely be admitted by the medicine team for medical management of this problem and likely require a rheumatology consult after treatment of this medical issue.
== END 2020-09-13 23:10 | disposition home or self-care (01) ==
LOC: M ED 14:43
DX: E11.9 Type 2 diabetes mellitus without complications (principal); M10.261 Drug-induced gout, right knee; I10 Essential (primary) hypertension; E78.5 Hyperlipidemia, unspecified; G62.9 Polyneuropathy, unspecified; G47.33 Obstructive sleep apnea (adult) (pediatric); Z79.899 Other long term (current) drug therapy; Z79.84 Long term (current) use of oral hypoglycemic drugs; Z88.0 Allergy status to penicillin; Z88.8 Allergy status to other drugs, medicaments and biological substances

== ENCOUNTER → 2020-09-22 | Outpatient (CLI) | payer MEDICARE, MEDICAID ==
[~2020-09-22] MED LIST changes: +GLIP2.5T6 PO; +NAPR500T6 PO; +TRAZ-252
[2020-09-22 10:39] LABS: HEMATOCRIT 39.7 % (42.0-52.0); HEMOGLOBIN 13.5 g/dl (13.5-17.5); MEAN CORPUSCULAR HEMOGLOBIN 33.9 pg (27.0-33.0); MEAN CORPUSCULAR VOLUME 99.7 fl (80.0-96.0); PLATELET COUNT, AUTOMATED 232 10^3/uL (150-450); RED BLOOD COUNT 3.98 10^6/uL (4.30-6.10); WHITE BLOOD COUNT 5.4 10^3/uL (4.0-10.0)
[2020-09-22 11:20] LABS: ALBUMIN 4.1 GM/DL (3.2-5.2); ALT/SGPT 39 U/L (12-78); BILIRUBIN,TOTAL 0.7 MG/DL (0.2-1.0); BLOOD UREA NITROGEN 21 MG/DL (7-18); CARBON DIOXIDE LEVEL 34 MEQ/L (21-32); CHLORIDE LEVEL 103 MEQ/L (98-107); CHOLESTEROL LEVEL 79 MG/DL (<200); CHOLESTEROL RISK RATIO 2.078 (<5); CREATININE FOR GFR 0.85 MG/DL (0.70-1.30); GLOMERULAR FILTRATION RATE > 60.0 (>42); GLUCOSE, FASTING 120 MG/DL (70-100); HDL CHOLESTEROL 38 MG/DL (>40); LDL CHOLESTEROL 25 MG/DL (<100); NON-HDL-C 41 MG/DL; SODIUM LEVEL 140 MEQ/L (136-145); TOTAL PROTEIN 6.8 GM/DL (6.4-8.2); TRIGLYCERIDES LEVEL 81 MG/DL (<150)
[2020-09-22 11:37] LABS: HEMOGLOBIN A1c 6.6 %
== END ==
LOC: M PLALAB 08:12
PROVIDERS: ATTEND Family Medicine
DX: E78.1 Pure hyperglyceridemia (principal); D50.9 Iron deficiency anemia, unspecified; I10 Essential (primary) hypertension; N40.1 Benign prostatic hyperplasia with lower urinary tract symptoms; E11.40 Type 2 diabetes mellitus with diabetic neuropathy, unspecified

== ENCOUNTER 2020-10-17 10:39 | Emergency (ER) | payer MEDICARE, MEDICAID ==
[~2020-10-17] VITALS: Ht 170.2 cm; Wt 87.5 kg
[~2020-10-17 10:39] MED LIST changes: -GLIP2.5T6 PO; -TRAZ-252
[2020-10-17 10:40] VITALS: BP 173/84
[2020-10-17] MEDS ORDERED: GLIP2.5T6 PO (13:24)
== END 2020-10-17 14:03 | disposition home or self-care (01) ==
LOC: M ED 10:39
DX: E11.65 Type 2 diabetes mellitus with hyperglycemia (principal); I10 Essential (primary) hypertension; Z88.0 Allergy status to penicillin; Z79.84 Long term (current) use of oral hypoglycemic drugs; Z79.899 Other long term (current) drug therapy

== ENCOUNTER 2020-10-20 07:57 | Emergency (ER) | payer MEDICARE, MEDICAID ==
[~2020-10-20] VITALS: Ht 172.7 cm; Wt 86.7 kg
[~2020-10-20 07:57] MED LIST changes: +GLIP2.5T6 PO
[2020-10-20] MEDS ORDERED: TRAZ-252 (08:11)
[2020-10-20 09:52] LABS: APPEARANCE, URINE CLEAR (CLEAR); BACTERIA, URINE AUTO NEGATIVE (NEGATIVE); BILIRUBIN, URINE AUTO NEGATIVE (NEGATIVE); BLOOD, URINE BLOOD NEGATIVE (NEGATIVE); COLOR, URINE YELLOW (YELLOW); GLUCOSE, URINE (UA) AUTO 3+ mg/dL (NEGATIVE); KETONE, URINE AUTO NEGATIVE (NEGATIVE); LEUKOCYTE ESTERASE, URINE AUTO NEGATIVE (NEGATIVE); MUCUS, URINE SMALL (NEGATIVE); NITRITE, URINE AUTO NEGATIVE (NEGATIVE); PROTEIN, URINE AUTO 1+ mg/dL (NEGATIVE); RBC, URINE AUTO 2 /HPF (0-3); SPECIFIC GRAVITY URINE AUTO 1.011 (1.002-1.035); SQUAMOUS EPITHELIAL CELL UR AU 0 /HPF (0-6); UROBILINOGEN, URINE AUTO 0.2 mg/dL (0.0-2.0); WBC, URINE AUTO 0 /HPF (0-3)
[2020-10-20 10:12] VITALS: BP 188/99
== END 2020-10-20 10:15 | disposition home or self-care (01) ==
LOC: M ED 07:57
DX: E11.65 Type 2 diabetes mellitus with hyperglycemia (principal); I10 Essential (primary) hypertension; G47.33 Obstructive sleep apnea (adult) (pediatric); N40.0 Benign prostatic hyperplasia without lower urinary tract symptoms; Z79.899 Other long term (current) drug therapy; Z79.84 Long term (current) use of oral hypoglycemic drugs; Z88.0 Allergy status to penicillin; Z88.8 Allergy status to other drugs, medicaments and biological substances

== ENCOUNTER → 2020-12-12 | Outpatient (REF) | payer MEDICARE, MEDICAID ==
[~2020-12-12] MED LIST changes: +TRAZ-252
== END ==
LOC: M SFHCPLAZ 13:09
DX: E11.9 Type 2 diabetes mellitus without complications (principal)

== ENCOUNTER → 2021-11-18 | Outpatient (CLI) | payer MEDICARE, MEDICAID ==
[2021-11-18 13:32] LABS: HEMATOCRIT 42.3 % (42.0-52.0); HEMOGLOBIN 14.7 g/dl (13.5-17.5); MEAN CORPUSCULAR HGB CONC 34.8 g/dl (32.0-36.5); MEAN CORPUSCULAR VOLUME 100.7 fl (80.0-96.0); PLATELET COUNT, AUTOMATED 186 10^3/uL (150-450); WHITE BLOOD COUNT 4.8 10^3/uL (4.0-10.0)
[2021-11-18 13:51] LABS: HEMOGLOBIN A1c 5.7 %
[2021-11-18 14:05] LABS: BLOOD UREA NITROGEN 14 MG/DL (7-18); CALCIUM LEVEL 9.7 MG/DL (8.8-10.2); CARBON DIOXIDE LEVEL 29 MEQ/L (21-32); CHLORIDE LEVEL 100 MEQ/L (98-107); CHOLESTEROL LEVEL 65 MG/DL (<200); CHOLESTEROL RISK RATIO 1.625 (<5); CREATININE FOR GFR 0.82 MG/DL (0.70-1.30); GLOMERULAR FILTRATION RATE > 60.0 (>42); GLUCOSE, FASTING 76 MG/DL (70-100); HDL CHOLESTEROL 40 MG/DL (>40); LDL CHOLESTEROL 14 MG/DL (<100); NON-HDL-C 25 MG/DL; POTASSIUM SERUM 3.7 MEQ/L (3.5-5.1); SODIUM LEVEL 137 MEQ/L (136-145); TRIGLYCERIDES LEVEL 56 MG/DL (<150)
[2021-11-18 14:52] LABS: CREATININE, URINE 73.7 MG/DL; MALB URINE SIEMENS 81.3 MG/L; MAU/CREAT RATIO 110.3 MCG/MG (0.0-30.0)
[2021-11-19 14:08] LABS: PSA TOTAL 0.2 ng/mL (0.0-4.0)
== END ==
LOC: M PLALAB 12:04
DX: N40.0 Benign prostatic hyperplasia without lower urinary tract symptoms (principal); E78.1 Pure hyperglyceridemia; E11.40 Type 2 diabetes mellitus with diabetic neuropathy, unspecified

== ENCOUNTER → 2022-05-21 | Outpatient (CLI) | payer MEDICARE, MEDICAID ==
[2022-05-21 15:50] LABS: BLOOD UREA NITROGEN 17 MG/DL (9-23); CALCIUM LEVEL 9.4 MG/DL (8.3-10.6); CARBON DIOXIDE LEVEL 31 MMOL/L (20-31); CHLORIDE LEVEL 100 MMOL/L (98-107); CREATININE FOR GFR 0.74 MG/DL (0.70-1.30); FOLATE > 24.0 NG/ML (>5.4); GLOMERULAR FILTRATION RATE > 60.0 (>42); GLUCOSE, FASTING 145 MG/DL (74-106); POTASSIUM SERUM 3.8 MMOL/L (3.5-5.1); SODIUM LEVEL 139 MMOL/L (136-145); THYROID STIMULATING HORMONE 1.301 uIU/ML (0.55-4.78)
[2022-05-21 15:51] LABS: VITAMIN B12 LEVEL 432 PG/ML (211-911)
[2022-05-21 15:52] LABS: FREE T4 1.17 NG/DL (0.89-1.76)
== END ==
LOC: M PLALAB 13:50
PROVIDERS: ATTEND Student in an Organized Health Care Education/Training Program
DX: G25.0 Essential tremor (principal)

== ENCOUNTER → 2022-05-21 | Outpatient (REF) | payer MEDICARE, MEDICAID | LOC: M SFHCPLAZ 15:24 | PROVIDERS: ATTEND Family Medicine | DX: G25.0 Essential tremor (principal) ==

== ENCOUNTER → 2022-08-04 | Outpatient (CLI) | payer MEDICARE, MEDICAID ==
[2022-08-04 14:28] LABS: BASO % 0.2 % (0.0-1.0); EOS # 0.1 10^3/uL (0.0-0.5); EOS % 0.8 % (0.0-3.0); HEMATOCRIT 41.7 % (42.0-52.0); HEMOGLOBIN 14.6 g/dl (13.5-17.5); LYMPH # 1.9 10^3/uL (1.5-5.0); LYMPH % 29.8 % (24.0-44.0); MEAN CORPUSCULAR HEMOGLOBIN 34.6 pg (27.0-33.0); MEAN CORPUSCULAR VOLUME 98.8 fl (80.0-96.0); MONO # 0.7 10^3/uL (0.0-0.8); MONO % 11.5 % (2.0-8.0); NEUTROPHILS # 3.7 10^3/uL (1.5-8.5); NEUTROPHILS % 57.4 % (36.0-66.0); PLATELET COUNT, AUTOMATED 216 10^3/uL (150-450); RED BLOOD COUNT 4.22 10^6/uL (4.30-6.10); WHITE BLOOD COUNT 6.4 10^3/uL (4.0-10.0)
[2022-08-04 14:50] LABS: ALKALINE PHOSPHATASE 60 U/L (46-116); ALT/SGPT 29 U/L (7.0-40); AST/SGOT 21 U/L (<34); BILIRUBIN,TOTAL 1.2 MG/DL (0.3-1.2); BLOOD UREA NITROGEN 17 MG/DL (9-23); CALCIUM LEVEL 9.2 MG/DL (8.3-10.6); CARBON DIOXIDE LEVEL 35 MMOL/L (20-31); CHLORIDE LEVEL 98 MMOL/L (98-107); CREATININE FOR GFR 0.82 MG/DL (0.70-1.30); GLOMERULAR FILTRATION RATE > 60.0 (>42); GLUCOSE, FASTING 81 MG/DL (74-106); POTASSIUM SERUM 3.3 MMOL/L (3.5-5.1); SODIUM LEVEL 141 MMOL/L (136-145); TOTAL PROTEIN 6.6 G/DL (5.7-8.2)
== END ==
LOC: M PLALAB 11:40
PROVIDERS: ATTEND Student in an Organized Health Care Education/Training Program
DX: R19.7 Diarrhea, unspecified (principal)

== ENCOUNTER → 2022-08-13 | Outpatient (REF) | payer MEDICARE, MEDICAID | LOC: M LAB REF 11:43 | PROVIDERS: ATTEND Student in an Organized Health Care Education/Training Program | DX: R19.7 Diarrhea, unspecified (principal) ==

== ENCOUNTER 2022-08-28 10:56 | Inpatient (IN) | payer MEDICARE, MEDICAID ==
[~2022-08-28] VITALS: Ht 175.3 cm; Wt 79.5 kg
[~2022-08-28 10:56] MED LIST changes: -TRAZ-252; +TRAZ-252 PO
[2022-08-28 13:19] LABS: BASO % 0.4 % (0.0-1.0); EOS % 0.5 % (0.0-3.0); HEMATOCRIT 42.2 % (42.0-52.0); HEMOGLOBIN 15.1 g/dl (13.5-17.5); LYMPH # 1.6 10^3/uL (1.5-5.0); MEAN CORPUSCULAR HEMOGLOBIN 35.4 pg (27.0-33.0); MEAN CORPUSCULAR HGB CONC 35.8 g/dl (32.0-36.5); MEAN CORPUSCULAR VOLUME 99.1 fl (80.0-96.0); MONO # 0.7 10^3/uL (0.0-0.8); MONO % 8.9 % (2.0-8.0); NEUTROPHILS # 5.2 10^3/uL (1.5-8.5); NEUTROPHILS % 69.1 % (36.0-66.0); PLATELET COUNT, AUTOMATED 238 10^3/uL (150-450); RED BLOOD COUNT 4.26 10^6/uL (4.30-6.10); WHITE BLOOD COUNT 7.5 10^3/uL (4.0-10.0)
[2022-08-28 14:13] LABS: BLOOD UREA NITROGEN 20 MG/DL (9-23); CALCIUM LEVEL 9.9 MG/DL (8.3-10.6); CARBON DIOXIDE LEVEL 33 MMOL/L (20-31); CHLORIDE LEVEL 102 MMOL/L (98-107); CREATININE FOR GFR 0.76 MG/DL (0.70-1.30); GLOMERULAR FILTRATION RATE > 60.0 (>42); GLUCOSE, FASTING 106 MG/DL (74-106); POTASSIUM SERUM 2.6 MMOL/L (3.5-5.1); SODIUM LEVEL 142 MMOL/L (136-145)
[2022-08-28] MEDS ORDERED: POTASSIUM CHLORIDE 10MEQ SR TABLET PO ONE (14:20)
[2022-08-28] MEDS ORDERED: KCL 10MEQ/100ML SWI (KRUN) 10 MEQ in IV 1 EA IV ONE (14:20)
[2022-08-28 14:32] LABS: MAGNESIUM LEVEL 1.6 MG/DL (1.8-2.4)
[2022-08-28] MEDS ORDERED: ISOVUE-370 76% 100ML VIAL As Ordered ONE (14:37)
[2022-08-28] MEDS: MAG SULF 1GM/100ML (MAG RUN) 1 GM in IV 1 EA IV SCH ×2 (16:45→18:34)
[2022-08-28 17:32] LABS: BLOOD UREA NITROGEN 19 MG/DL (9-23); CALCIUM LEVEL 9.3 MG/DL (8.3-10.6); CARBON DIOXIDE LEVEL 34 MMOL/L (20-31); CHLORIDE LEVEL 102 MMOL/L (98-107); CREATININE FOR GFR 0.77 MG/DL (0.70-1.30); GLOMERULAR FILTRATION RATE > 60.0 (>42); GLUCOSE, FASTING 108 MG/DL (74-106); POTASSIUM SERUM 2.6 MMOL/L (3.5-5.1); SODIUM LEVEL 141 MMOL/L (136-145)
[2022-08-28 18:35] LABS: ALBUMIN 3.8 G/DL (3.2-5.2); ALKALINE PHOSPHATASE 62 U/L (46-116); ALT/SGPT 33 U/L (7.0-40); AST/SGOT 21 U/L (<34); BILIRUBIN,DIRECT 0.4 MG/DL (<0.4); CPK CREATINE PHOSPHOKINASE 138 U/L (46-171); MB/CK RELATIVE INDEX 1.44 (< OR =4); TOTAL PROTEIN 6.3 G/DL (5.7-8.2)
[2022-08-28] MEDS ORDERED: OMEG10002 PO (18:59)
[2022-08-28] MEDS ORDERED: RA B1TAB7 PO (18:59)
[2022-08-28] MEDS ORDERED: AMLO1TAB25 PO (18:59)
[2022-08-28] MEDS ORDERED: IRBE150T14 PO (18:59)
[2022-08-28] MEDS ORDERED: AVOD0.5C PO (18:59)
[2022-08-28] MEDS ORDERED: ASPI81TA26 PO (18:59)
[2022-08-28] MEDS ORDERED: PROP40TA62 PO (18:59)
[2022-08-28] MEDS ORDERED: HOME MED LIST COMPLETE! XX SCH (19:05)
[2022-08-28] MEDS ORDERED: GLUCAGON INJ 1MG VIAL SC PRN (19:25)
[2022-08-28] MEDS ORDERED: GLUCOSE 4GM CHEW TABLET PO PRN (19:25)
[2022-08-28] MEDS ORDERED: DEXTROSE 50% 50ML SYRINGE IV PRN (19:25)
[2022-08-28] MEDS ORDERED: LOPERAMIDE 2 MG CAPLET PO ONE (19:35)
[2022-08-28] MEDS: KCL 10MEQ/100ML SWI (KRUN) 10 MEQ in IV 1 EA IV SCH ×2 (19:41→20:57)
[2022-08-28] MEDS ORDERED: NS 1,000 ML IV SCH (19:45)
[2022-08-28] MEDS ORDERED: ATOR80TA59 PO (19:47)
[2022-08-28] MEDS ORDERED: IRBE300T12 PO (19:47)
[2022-08-28 20:03] LABS: CK-MB VALUE MASS 2.3 NG/ML (<3.6)
[2022-08-28 20:05] LABS: MB/CK RELATIVE INDEX 1.69 (< OR =4)
[2022-08-28] MEDS: INSULIN LISPRO (NovoLOG) PER UNIT SC SCH (20:57)
[2022-08-28 22:18] VITALS: BP 170/82; TEMP 98.1; O2SAT 97
[2022-08-28] MEDS ORDERED: **hydrALAZINE** 50 MG TAB PO ONE (22:35)
[2022-08-28 22:50] LABS: BLOOD UREA NITROGEN 17 MG/DL (9-23); CALCIUM LEVEL 8.5 MG/DL (8.3-10.6); CARBON DIOXIDE LEVEL 33 MMOL/L (20-31); CHLORIDE LEVEL 102 MMOL/L (98-107); CREATININE FOR GFR 0.73 MG/DL (0.70-1.30); GLOMERULAR FILTRATION RATE > 60.0 (>42); GLUCOSE, FASTING 178 MG/DL (74-106); MAGNESIUM LEVEL 1.7 MG/DL (1.8-2.4); POTASSIUM SERUM 2.8 MMOL/L (3.5-5.1); SODIUM LEVEL 139 MMOL/L (136-145)
[2022-08-28] MEDS ORDERED: MAG SULF 1GM/100ML (MAG RUN) 1 GM in IV 1 EA IV ONE (23:20)
[2022-08-28] MEDS: POTASSIUM CHLORIDE 10MEQ SR TABLET PO SCH (23:36)
[2022-08-29] VITALS (7 sets, daily range): BP systolic 121–165; BP diastolic 66–80; TEMP 97.5–98.1; O2SAT 95–99
[2022-08-29] MEDS ORDERED: GABAPENTIN 300 MG CAP PO ONE (00:55)
[2022-08-29] MEDS ORDERED: traZODone 50 MG TAB PO ONE (00:55)
[2022-08-29] MEDS: KCL 10MEQ/100ML SWI (KRUN) 10 MEQ in IV 1 EA IV SCH ×6 (00:58→23:10)
[2022-08-29] MEDS: POTASSIUM CHLORIDE 10MEQ SR TABLET PO SCH (01:12)
[2022-08-29 05:56] LABS: HEMATOCRIT 35.1 % (42.0-52.0); MEAN CORPUSCULAR HEMOGLOBIN 34.6 pg (27.0-33.0); MEAN CORPUSCULAR HGB CONC 35.3 g/dl (32.0-36.5); PLATELET COUNT, AUTOMATED 172 10^3/uL (150-450); RED BLOOD COUNT 3.58 10^6/uL (4.30-6.10); WHITE BLOOD COUNT 6.1 10^3/uL (4.0-10.0)
[2022-08-29 06:07] LABS: HEMOGLOBIN 12.4 g/dl (13.5-17.5)
[2022-08-29 06:24] LABS: BLOOD UREA NITROGEN 13 MG/DL (9-23); CALCIUM LEVEL 7.8 MG/DL (8.3-10.6); CARBON DIOXIDE LEVEL 35 MMOL/L (20-31); CHLORIDE LEVEL 105 MMOL/L (98-107); GLOMERULAR FILTRATION RATE > 60.0 (>42); GLUCOSE, FASTING 95 MG/DL (74-106); MAGNESIUM LEVEL 1.7 MG/DL (1.8-2.4); PHOSPHORUS LEVEL 1.5 MG/DL (2.4-5.1); POTASSIUM SERUM 2.9 MMOL/L (3.5-5.1); SODIUM LEVEL 143 MMOL/L (136-145)
[2022-08-29] MEDS ORDERED: POTASSIUM CHLORIDE 10MEQ SR TABLET PO ONE ×2 (06:30→18:00)
[2022-08-29] MEDS: MAG SULF 1GM/100ML (MAG RUN) 1 GM in IV 1 EA IV SCH ×4 (06:53→18:44)
[2022-08-29] MEDS ORDERED: POTASSIUM PHOSPHATE INJ 20 MMOL in D5W 250 ML IV ONE ×2 (07:00→20:00)
[2022-08-29] MEDS: INSULIN LISPRO (NovoLOG) PER UNIT SC SCH ×4 (07:30→21:00)
[2022-08-29] MEDS: ENOXAPARIN 40MG/0.4ML SYRINGE (J1650 PER 10MG) SC SCH (08:15)
[2022-08-29] MEDS: DUTASTERIDE 0.5 MG CAP (AVODART) PO SCH (08:16)
[2022-08-29] MEDS: TAMSULOSIN 0.4 MG CAP PO SCH (08:16)
[2022-08-29] MEDS: ASPIRIN 81MG ENTERIC TABLET PO SCH (08:16)
[2022-08-29] MEDS: ATORVASTATIN 20 MG TAB PO SCH (08:17)
[2022-08-29] MEDS: IRBESARTAN 150MG TAB PO SCH (08:17)
[2022-08-29] MEDS ORDERED: LOPERAMIDE 2 MG CAPLET PO PRN (09:05)
[2022-08-29] MEDS: SIMETHICONE 80MG CHEW TAB PO SCH ×3 (13:31→23:09)
[2022-08-29] MEDS: LACTOBACILLUS ACIDOPHILUS CAP (BACID) PO SCH ×3 (13:33→21:05)
[2022-08-29] MEDS ORDERED: METOCLOPRAMIDE 5 MG TAB PO PRN (13:35)
[2022-08-29] MEDS ORDERED: METOCLOPRAMIDE 5 MG TAB PO ONE (14:00)
[2022-08-29 16:34] LABS: BLOOD UREA NITROGEN 11 MG/DL (9-23); CALCIUM LEVEL 7.9 MG/DL (8.3-10.6); CARBON DIOXIDE LEVEL 31 MMOL/L (20-31); CHLORIDE LEVEL 106 MMOL/L (98-107); CREATININE FOR GFR 0.66 MG/DL (0.70-1.30); GLOMERULAR FILTRATION RATE > 60.0 (>42); GLUCOSE, FASTING 218 MG/DL (74-106); MAGNESIUM LEVEL 1.7 MG/DL (1.8-2.4); PHOSPHORUS LEVEL 1.2 MG/DL (2.4-5.1); POTASSIUM SERUM 3.1 MMOL/L (3.5-5.1); SODIUM LEVEL 142 MMOL/L (136-145)
[2022-08-29] MEDS ORDERED: TAMSULOSIN 0.4 MG CAP PO SCH (21:00)
[2022-08-29] MEDS: METOCLOPRAMIDE 5 MG TAB PO SCH (21:05)
[2022-08-29] MEDS: traZODone 50 MG TAB PO SCH (21:05)
[2022-08-29] MEDS: GABAPENTIN 300 MG CAP PO SCH (21:05)
[2022-08-29 23:38] LABS: BLOOD UREA NITROGEN 10 MG/DL (9-23); CALCIUM LEVEL 7.3 MG/DL (8.3-10.6); CARBON DIOXIDE LEVEL 30 MMOL/L (20-31); CHLORIDE LEVEL 106 MMOL/L (98-107); CREATININE FOR GFR 0.69 MG/DL (0.70-1.30); GLOMERULAR FILTRATION RATE > 60.0 (>42); GLUCOSE, FASTING 110 MG/DL (74-106); MAGNESIUM LEVEL 1.9 MG/DL (1.8-2.4); PHOSPHORUS LEVEL 3.7 MG/DL (2.4-5.1); POTASSIUM SERUM 3.4 MMOL/L (3.5-5.1); SODIUM LEVEL 141 MMOL/L (136-145)
[2022-08-30] VITALS (7 sets, daily range): BP systolic 110–148; BP diastolic 57–79; TEMP 97.7–98.6; O2SAT 93–98
[2022-08-30] MEDS: KCL 10MEQ/100ML SWI (KRUN) 10 MEQ in IV 1 EA IV SCH ×2 (00:48→02:15)
[2022-08-30] MEDS: SIMETHICONE 80MG CHEW TAB PO SCH ×4 (05:06→23:19)
[2022-08-30] MEDS: METOCLOPRAMIDE 5 MG TAB PO SCH ×3 (05:06→21:42)
[2022-08-30 06:27] LABS: HEMATOCRIT 35.1 % (42.0-52.0); HEMOGLOBIN 12.4 g/dl (13.5-17.5); MEAN CORPUSCULAR HGB CONC 35.3 g/dl (32.0-36.5); MEAN CORPUSCULAR VOLUME 99.2 fl (80.0-96.0); PLATELET COUNT, AUTOMATED 167 10^3/uL (150-450); RED BLOOD COUNT 3.54 10^6/uL (4.30-6.10); WHITE BLOOD COUNT 5.9 10^3/uL (4.0-10.0)
[2022-08-30 06:54] LABS: BLOOD UREA NITROGEN 10 MG/DL (9-23); CALCIUM LEVEL 7.6 MG/DL (8.3-10.6); CARBON DIOXIDE LEVEL 30 MMOL/L (20-31); CHLORIDE LEVEL 107 MMOL/L (98-107); CREATININE FOR GFR 0.64 MG/DL (0.70-1.30); GLOMERULAR FILTRATION RATE > 60.0 (>42); GLUCOSE, FASTING 110 MG/DL (74-106); MAGNESIUM LEVEL 1.8 MG/DL (1.8-2.4); PHOSPHORUS LEVEL 2.7 MG/DL (2.4-5.1); POTASSIUM SERUM 3.1 MMOL/L (3.5-5.1); SODIUM LEVEL 143 MMOL/L (136-145)
[2022-08-30] MEDS: INSULIN LISPRO (NovoLOG) PER UNIT SC SCH ×4 (07:30→21:00)
[2022-08-30] MEDS ORDERED: POTASSIUM CHLORIDE 10MEQ SR TABLET PO ONE (07:30)
[2022-08-30] MEDS: ASPIRIN 81MG ENTERIC TABLET PO SCH (07:57)
[2022-08-30] MEDS: DUTASTERIDE 0.5 MG CAP (AVODART) PO SCH (07:58)
[2022-08-30] MEDS: IRBESARTAN 150MG TAB PO SCH (07:58)
[2022-08-30] MEDS: LACTOBACILLUS ACIDOPHILUS CAP (BACID) PO SCH ×4 (07:58→21:41)
[2022-08-30] MEDS: TAMSULOSIN 0.4 MG CAP PO SCH (07:58)
[2022-08-30] MEDS: ATORVASTATIN 20 MG TAB PO SCH (07:59)
[2022-08-30] MEDS: ENOXAPARIN 40MG/0.4ML SYRINGE (J1650 PER 10MG) SC SCH (07:59)
[2022-08-30] MEDS: GABAPENTIN 300 MG CAP PO SCH (21:41)
[2022-08-30] MEDS: traZODone 50 MG TAB PO SCH (21:41)
[2022-08-31 01:30] VITALS: BP 117/65; TEMP 97.9; O2SAT 98
[2022-08-31 05:30] VITALS: BP 147/82; TEMP 97.7; O2SAT 98
[2022-08-31] MEDS: METOCLOPRAMIDE 5 MG TAB PO SCH (05:40)
[2022-08-31] MEDS: SIMETHICONE 80MG CHEW TAB PO SCH (05:40)
[2022-08-31 06:26] LABS: BLOOD UREA NITROGEN 10 MG/DL (9-23); CALCIUM LEVEL 8.4 MG/DL (8.3-10.6); CARBON DIOXIDE LEVEL 31 MMOL/L (20-31); CHLORIDE LEVEL 105 MMOL/L (98-107); CREATININE FOR GFR 0.61 MG/DL (0.70-1.30); GLOMERULAR FILTRATION RATE > 60.0 (>42); GLUCOSE, FASTING 122 MG/DL (74-106); MAGNESIUM LEVEL 1.7 MG/DL (1.8-2.4); POTASSIUM SERUM 3.3 MMOL/L (3.5-5.1); SODIUM LEVEL 144 MMOL/L (136-145)
[2022-08-31 07:16] LABS: BASO % 0.4 % (0.0-1.0); EOS # 0.1 10^3/uL (0.0-0.5); EOS % 2.2 % (0.0-3.0); HEMATOCRIT 36.9 % (42.0-52.0); HEMOGLOBIN 13.1 g/dl (13.5-17.5); LYMPH # 1.5 10^3/uL (1.5-5.0); LYMPH % 33.3 % (24.0-44.0); MEAN CORPUSCULAR HEMOGLOBIN 35.2 pg (27.0-33.0); MEAN CORPUSCULAR HGB CONC 35.5 g/dl (32.0-36.5); MEAN CORPUSCULAR VOLUME 99.2 fl (80.0-96.0); MONO # 0.4 10^3/uL (0.0-0.8); MONO % 8.9 % (2.0-8.0); NEUTROPHILS # 2.5 10^3/uL (1.5-8.5); NEUTROPHILS % 54.8 % (36.0-66.0); PLATELET COUNT, AUTOMATED 167 10^3/uL (150-450); RED BLOOD COUNT 3.72 10^6/uL (4.30-6.10); WHITE BLOOD COUNT 4.5 10^3/uL (4.0-10.0)
[2022-08-31] MEDS: INSULIN LISPRO (NovoLOG) PER UNIT SC SCH (07:36)
[2022-08-31] MEDS: MAG SULF 1GM/100ML (MAG RUN) 1 GM in IV 1 EA IV SCH ×2 (07:57→09:10)
[2022-08-31] MEDS: ATORVASTATIN 20 MG TAB PO SCH (08:00)
[2022-08-31] MEDS ORDERED: POTASSIUM CHLORIDE 10MEQ SR TABLET PO ONE (08:00)
[2022-08-31 08:01] VITALS: BP 134/78
[2022-08-31] MEDS: ASPIRIN 81MG ENTERIC TABLET PO SCH (08:01)
[2022-08-31] MEDS: DUTASTERIDE 0.5 MG CAP (AVODART) PO SCH (08:01)
[2022-08-31] MEDS: ENOXAPARIN 40MG/0.4ML SYRINGE (J1650 PER 10MG) SC SCH (08:01)
[2022-08-31] MEDS: LACTOBACILLUS ACIDOPHILUS CAP (BACID) PO SCH (08:01)
[2022-08-31] MEDS: IRBESARTAN 150MG TAB PO SCH (08:01)
[2022-08-31] MEDS: TAMSULOSIN 0.4 MG CAP PO SCH (08:01)
[2022-08-31] MEDS ORDERED: IRBE300T7 PO (08:51)
[2022-08-31] MEDS ORDERED: SIME80TA16 PO (08:51)
[2022-08-31] MEDS ORDERED: METO5TAB2 PO (08:51)
[2022-08-31] MEDS ORDERED: POTA-298 PO (08:51)
[2022-08-31] MEDS ORDERED: RISATAB3 PO (08:51)
[2022-08-31] MEDS ORDERED: MAGN400T2 PO (08:51)
[2022-08-31 10:00] VITALS: BP 131/78; TEMP 97.9; O2SAT 96
== END 2022-08-31 11:30 | disposition home or self-care (01) | DRG 74 ==
LOC: M ED 10:56 → M ED INP 20:56 → M MSPAV 22:18
PROVIDERS: ADMIT Internal Medicine; ATTEND Internal Medicine
DX: E11.43 Type 2 diabetes mellitus with diabetic autonomic (poly)neuropathy (principal); R19.7 Diarrhea, unspecified; G25.0 Essential tremor; E87.6 Hypokalemia; E83.42 Hypomagnesemia; I25.10 Atherosclerotic heart disease of native coronary artery without angina pectoris; G47.33 Obstructive sleep apnea (adult) (pediatric); I10 Essential (primary) hypertension; J98.6 Disorders of diaphragm; E83.39 Other disorders of phosphorus metabolism; K31.84 Gastroparesis; E66.9 Obesity, unspecified; G47.00 Insomnia, unspecified; N40.0 Benign prostatic hyperplasia without lower urinary tract symptoms; R00.1 Bradycardia, unspecified; T44.7X5A Adverse effect of beta-adrenoreceptor antagonists, initial encounter; E11.42 Type 2 diabetes mellitus with diabetic polyneuropathy; Z79.82 Long term (current) use of aspirin; Z79.84 Long term (current) use of oral hypoglycemic drugs; Z79.899 Other long term (current) drug therapy; Z88.0 Allergy status to penicillin; Z88.8 Allergy status to other drugs, medicaments and biological substances; Z20.822 Contact with and (suspected) exposure to COVID-19; Z66 Do not resuscitate

== ENCOUNTER 2022-09-02 11:19 | Emergency (ER) | payer MEDICARE, MEDICAID ==
[~2022-09-02] VITALS: Ht 175.3 cm; Wt 79.6 kg
[~2022-09-02 11:19] MED LIST changes: +ASPI81TA26 PO; +ATOR80TA59 PO; +AVOD0.5C PO; +IRBE300T12 PO; +IRBE300T7 PO; +MAGN400T2 PO; +METO5TAB2 PO; +OMEG10002 PO; +POTA-298 PO; +PROP40TA62 PO; +RA B1TAB7 PO; +RISATAB3 PO; +SIME80TA16 PO
[2022-09-02 12:29] LABS: HEMATOCRIT 37.6 % (42.0-52.0); HEMOGLOBIN 13.1 g/dl (13.5-17.5); MEAN CORPUSCULAR HEMOGLOBIN 35.6 pg (27.0-33.0); MEAN CORPUSCULAR HGB CONC 34.8 g/dl (32.0-36.5); MEAN CORPUSCULAR VOLUME 102.2 fl (80.0-96.0); PLATELET COUNT, AUTOMATED 173 10^3/uL (150-450); RED BLOOD COUNT 3.68 10^6/uL (4.30-6.10); WHITE BLOOD COUNT 4.1 10^3/uL (4.0-10.0)
[2022-09-02 13:24] LABS: LIPASE 38 U/L (12-53)
[2022-09-02 13:27] LABS: ALBUMIN 3.8 G/DL (3.2-5.2); ALKALINE PHOSPHATASE 58 U/L (46-116); ALT/SGPT 40 U/L (7.0-40); AST/SGOT < 8 U/L (<34); BILIRUBIN,DIRECT 0.4 MG/DL (<0.4); MAGNESIUM LEVEL 1.7 MG/DL (1.8-2.4); TOTAL PROTEIN 6.2 G/DL (5.7-8.2)
[2022-09-02 13:43] LABS: OSMOLALITY SERUM 292 MOSM/KG (280-301)
[2022-09-02 14:13] LABS: HEMOGLOBIN A1c 5.4 % (4.0-6.0)
[2022-09-02 15:03] VITALS: BP 127/62; TEMP 98.4; O2SAT 98
== END 2022-09-02 15:17 | disposition home or self-care (01) ==
LOC: M ED 11:19
DX: R19.7 Diarrhea, unspecified (principal); I10 Essential (primary) hypertension; E11.9 Type 2 diabetes mellitus without complications; G47.33 Obstructive sleep apnea (adult) (pediatric); N40.0 Benign prostatic hyperplasia without lower urinary tract symptoms; E78.5 Hyperlipidemia, unspecified; G62.9 Polyneuropathy, unspecified; Z88.0 Allergy status to penicillin; Z88.8 Allergy status to other drugs, medicaments and biological substances; Z79.899 Other long term (current) drug therapy; Z79.84 Long term (current) use of oral hypoglycemic drugs; Z79.82 Long term (current) use of aspirin

== ENCOUNTER → 2022-09-17 | Outpatient (REF) | payer MEDICARE, MEDICAID | LOC: M SFHCPLAZ 15:24 | PROVIDERS: ATTEND Family Medicine | DX: E87.6 Hypokalemia (principal); E83.42 Hypomagnesemia; E11.40 Type 2 diabetes mellitus with diabetic neuropathy, unspecified; I10 Essential (primary) hypertension; N40.0 Benign prostatic hyperplasia without lower urinary tract symptoms; D50.9 Iron deficiency anemia, unspecified; G25.0 Essential tremor; E78.1 Pure hyperglyceridemia ==

== ENCOUNTER → 2022-09-17 | Outpatient (CLI) | payer MEDICARE, MEDICAID ==
[2022-09-17 17:56] LABS: HEMATOCRIT 41.3 % (42.0-52.0); HEMOGLOBIN 14.1 g/dl (13.5-17.5); MEAN CORPUSCULAR HEMOGLOBIN 35.1 pg (27.0-33.0); MEAN CORPUSCULAR HGB CONC 34.1 g/dl (32.0-36.5); MEAN CORPUSCULAR VOLUME 102.7 fl (80.0-96.0); PLATELET COUNT, AUTOMATED 218 10^3/uL (150-450); RED BLOOD COUNT 4.02 10^6/uL (4.30-6.10); WHITE BLOOD COUNT 5.2 10^3/uL (4.0-10.0)
[2022-09-17 17:59] LABS: HEMOGLOBIN A1c 5.6 % (4.0-6.0)
[2022-09-17 18:04] LABS: CREATININE, URINE 45.2 MG/DL; MAU/CREAT RATIO 141.5 MCG/MG (0.0-30.0)
[2022-09-17 18:06] LABS: ALBUMIN 4.3 G/DL (3.2-5.2); ALKALINE PHOSPHATASE 56 U/L (46-116); ALT/SGPT 33 U/L (7.0-40); AST/SGOT 13 U/L (<34); BLOOD UREA NITROGEN 15 MG/DL (9-23); CALCIUM LEVEL 9.2 MG/DL (8.3-10.6); CARBON DIOXIDE LEVEL 28 MMOL/L (20-31); CHLORIDE LEVEL 103 MMOL/L (98-107); CHOLESTEROL LEVEL 85 MG/DL (<200); CHOLESTEROL RISK RATIO 1.71 (<5); CREATININE FOR GFR 0.66 MG/DL (0.70-1.30); GLOMERULAR FILTRATION RATE > 60.0 (>42); GLUCOSE, FASTING 102 MG/DL (74-106); HDL CHOLESTEROL 49.5 MG/DL (>40); LDL CHOLESTEROL 22.3 MG/DL (<100); MAGNESIUM LEVEL 1.7 MG/DL (1.8-2.4); NON-HDL-C 35.5 MG/DL; POTASSIUM SERUM 3.8 MMOL/L (3.5-5.1); SODIUM LEVEL 140 MMOL/L (136-145); TRIGLYCERIDES LEVEL 66 MG/DL (<150)
== END ==
LOC: M PLALAB 15:25
PROVIDERS: ATTEND Family Medicine
DX: E87.6 Hypokalemia (principal); E83.42 Hypomagnesemia; E11.40 Type 2 diabetes mellitus with diabetic neuropathy, unspecified; I10 Essential (primary) hypertension; N40.0 Benign prostatic hyperplasia without lower urinary tract symptoms; D50.9 Iron deficiency anemia, unspecified; G25.0 Essential tremor; E78.1 Pure hyperglyceridemia

== ENCOUNTER 2022-10-10 17:06 | Emergency (ER) | payer MEDICARE, MEDICAID ==
[~2022-10-10] VITALS: Ht 175.3 cm; Wt 78.5 kg
[2022-10-10 17:06] VITALS: TEMP 98.3
[2022-10-10 17:39] LABS: HEMATOCRIT 36.7 % (42.0-52.0); HEMOGLOBIN 12.5 g/dl (13.5-17.5); MEAN CORPUSCULAR HEMOGLOBIN 34.2 pg (27.0-33.0); MEAN CORPUSCULAR HGB CONC 34.1 g/dl (32.0-36.5); MEAN CORPUSCULAR VOLUME 100.5 fl (80.0-96.0); PLATELET COUNT, AUTOMATED 191 10^3/uL (150-450); RED BLOOD COUNT 3.65 10^6/uL (4.30-6.10); WHITE BLOOD COUNT 6.6 10^3/uL (4.0-10.0)
[2022-10-10 18:01] LABS: ALBUMIN 3.8 G/DL (3.2-5.2); ALKALINE PHOSPHATASE 62 U/L (46-116); ALT/SGPT 46 U/L (7.0-40); AST/SGOT 24 U/L (<34); BILIRUBIN,TOTAL 0.6 MG/DL (0.3-1.2); BLOOD UREA NITROGEN 18 MG/DL (9-23); CALCIUM LEVEL 9.2 MG/DL (8.3-10.6); CARBON DIOXIDE LEVEL 26 MMOL/L (20-31); CHLORIDE LEVEL 103 MMOL/L (98-107); CREATININE FOR GFR 0.93 MG/DL (0.70-1.30); GLOMERULAR FILTRATION RATE > 60.0 (>42); GLUCOSE, FASTING 161 MG/DL (74-106); POTASSIUM SERUM 3.3 MMOL/L (3.5-5.1); SODIUM LEVEL 140 MMOL/L (136-145); TOTAL PROTEIN 6.1 G/DL (5.7-8.2)
[2022-10-10 19:28] LABS: LIPASE 53 U/L (12-53)
[2022-10-10 19:30] VITALS: BP 156/75
[2022-10-10 19:33] LABS: FREE T4 1.16 NG/DL (0.89-1.76); THYROID STIMULATING HORMONE 0.978 uIU/ML (0.55-4.78)
[2022-10-10 19:36] VITALS: O2SAT 95
== END 2022-10-10 20:40 | disposition home or self-care (01) ==
LOC: M ED 17:06
DX: R53.81 Other malaise (principal); I49.1 Atrial premature depolarization; I10 Essential (primary) hypertension; F10.10 Alcohol abuse, uncomplicated; F12.10 Cannabis abuse, uncomplicated; Z88.0 Allergy status to penicillin; Z88.8 Allergy status to other drugs, medicaments and biological substances; Z79.02 Long term (current) use of antithrombotics/antiplatelets; Z79.4 Long term (current) use of insulin; Z79.811 Long term (current) use of aromatase inhibitors; Z79.899 Other long term (current) drug therapy

== ENCOUNTER → 2022-11-25 | Outpatient (CLI) | payer MEDICARE, MEDICAID ==
[2022-11-25 16:30] LABS: ALBUMIN 4.1 G/DL (3.2-5.2); BLOOD UREA NITROGEN 19 MG/DL (9-23); CALCIUM LEVEL 9.6 MG/DL (8.3-10.6); CARBON DIOXIDE LEVEL 31 MMOL/L (20-31); CHLORIDE LEVEL 104 MMOL/L (98-107); CREATININE FOR GFR 0.76 MG/DL (0.70-1.30); GLOMERULAR FILTRATION RATE > 60.0 (>42); GLUCOSE, FASTING 84 MG/DL (74-106); MAGNESIUM LEVEL 1.9 MG/DL (1.8-2.4); PHOSPHORUS LEVEL 3.3 MG/DL (2.4-5.1); POTASSIUM SERUM 4.3 MMOL/L (3.5-5.1); SODIUM LEVEL 142 MMOL/L (136-145)
== END ==
LOC: M PLALAB 12:57
PROVIDERS: ATTEND Family Medicine
DX: E87.6 Hypokalemia (principal); E83.42 Hypomagnesemia; R00.2 Palpitations; I10 Essential (primary) hypertension

== ENCOUNTER 2023-10-23 10:02 | Emergency (ER) | payer MEDICARE, MEDICAID ==
[~2023-10-23] VITALS: Ht 175.3 cm; Wt 77.3 kg
[~2023-10-23 10:02] MED LIST changes: +IRBE300T25 PO; -IRBE300T7 PO
[2023-10-23] MEDS ORDERED: METO1TAB7 (10:14)
[2023-10-23 14:24] LABS: HEMATOCRIT 36.9 % (42.0-52.0); HEMOGLOBIN 12.7 g/dl (13.5-17.5); MEAN CORPUSCULAR HEMOGLOBIN 34.9 pg (27.0-33.0); MEAN CORPUSCULAR HGB CONC 34.4 g/dl (32.0-36.5); MEAN CORPUSCULAR VOLUME 101.4 fl (80.0-96.0); PLATELET COUNT, AUTOMATED 180 10^3/uL (150-450); RED BLOOD COUNT 3.64 10^6/uL (4.30-6.10); WHITE BLOOD COUNT 6.7 10^3/uL (4.0-10.0)
[2023-10-23 14:51] LABS: ALBUMIN 3.8 G/DL (3.2-5.2); ALKALINE PHOSPHATASE 66 U/L (46-116); ALT/SGPT 34 U/L (7.0-40); AST/SGOT 17 U/L (<34); BLOOD UREA NITROGEN 15 MG/DL (9-23); CALCIUM LEVEL 9.2 MG/DL (8.3-10.6); CARBON DIOXIDE LEVEL 29 MMOL/L (20-31); CHLORIDE LEVEL 102 MMOL/L (98-107); CREATININE FOR GFR 0.78 MG/DL (0.70-1.30); GLOMERULAR FILTRATION RATE > 60.0 (>42); GLUCOSE, FASTING 120 MG/DL (74-106); POTASSIUM SERUM 3.8 MMOL/L (3.5-5.1); SODIUM LEVEL 139 MMOL/L (136-145); TOTAL PROTEIN 6.2 G/DL (5.7-8.2)
[2023-10-23] MEDS: IBUPROFEN 600MG TAB PO ONE (14:56)
[2023-10-23 15:16] VITALS: BP 167/74; TEMP 97; O2SAT 99
== END 2023-10-23 16:15 | disposition home or self-care (01) ==
LOC: M ED 10:02
DX: M25.462 Effusion, left knee (principal); E11.9 Type 2 diabetes mellitus without complications; I11.0 Hypertensive heart disease with heart failure; N40.0 Benign prostatic hyperplasia without lower urinary tract symptoms; I25.119 Atherosclerotic heart disease of native coronary artery with unspecified angina pectoris; F12.10 Cannabis abuse, uncomplicated; F10.10 Alcohol abuse, uncomplicated; Z88.0 Allergy status to penicillin; Z88.8 Allergy status to other drugs, medicaments and biological substances; Z79.1 Long term (current) use of non-steroidal anti-inflammatories (NSAID); Z79.84 Long term (current) use of oral hypoglycemic drugs; Z79.899 Other long term (current) drug therapy

== ENCOUNTER 2024-09-07 09:16 | Emergency (ER) | payer MEDICARE, MEDICAID ==
[~2024-09-07] VITALS: Ht 175.3 cm; Wt 70.9 kg
[~2024-09-07 09:16] MED LIST changes: +GABA-1172 PO; -GABA-282 PO; +GLIP2.5T46 PO; -GLIP2.5T6 PO; +METO1TAB7; +NAPR-1405 PO; -NAPR500T6 PO
[2024-09-07] MEDS ORDERED: META28.32 PO (09:50)
[2024-09-07 11:33] LABS: KETONE, URINE AUTO RFX NEGATIVE (NEGATIVE); LEUKOCYTE ESTERASE UR AUTO RFX NEGATIVE (NEGATIVE); MUCUS, URINE RFX SMALL (NEGATIVE); NITRITE, URINE AUTO RFX NEGATIVE (NEGATIVE); RBC, URINE AUTO RFX 0 /HPF (0-3); SQUAM EPITHELIAL CELL UR AURFX 0 /HPF (0-6); WBC, URINE AUTO RFX 0 /HPF (0-3)
[2024-09-07 11:34] LABS: BASO # 0.0 10^3/uL (0.0-0.2); BASO % 0.5 % (0.0-1.0); EOS # 0.0 10^3/uL (0.0-0.5); EOS % 0.5 % (0.0-3.0); LYMPH # 1.2 10^3/uL (1.5-5.0); LYMPH % 27.4 % (24.0-44.0); MONO # 0.3 10^3/uL (0.0-0.8); MONO % 7.9 % (2.0-8.0); NEUTROPHILS # 2.7 10^3/uL (1.5-8.5); NEUTROPHILS % 63.2 % (36.0-66.0); PLATELET COUNT, AUTOMATED 189 10^3/uL (150-450)
[2024-09-07 11:55] LABS: CALCIUM LEVEL 9.0 MG/DL (8.3-10.6); CARBON DIOXIDE LEVEL 30 MMOL/L (20-31); CHLORIDE LEVEL 99 MMOL/L (98-107); CREATININE FOR GFR 0.72 MG/DL (0.70-1.30); GLOMERULAR FILTRATION RATE > 90.0 (>42); POTASSIUM SERUM 4.2 MMOL/L (3.5-5.1); SODIUM LEVEL 141 MMOL/L (136-145)
[2024-09-07] MEDS ORDERED: COLA100C5 PO (12:06)
[2024-09-07] MEDS ORDERED: MIRA3350 PO (12:06)
[2024-09-07 12:10] VITALS: BP 183/84; TEMP 96.8; O2SAT 100
== END 2024-09-07 12:25 | disposition home or self-care (01) ==
LOC: M ED 09:16
DX: K59.00 Constipation, unspecified (principal); E78.5 Hyperlipidemia, unspecified; E11.9 Type 2 diabetes mellitus without complications; I10 Essential (primary) hypertension; Z88.0 Allergy status to penicillin; Z88.8 Allergy status to other drugs, medicaments and biological substances; Z79.1 Long term (current) use of non-steroidal anti-inflammatories (NSAID); Z79.84 Long term (current) use of oral hypoglycemic drugs; Z79.899 Other long term (current) drug therapy

== ENCOUNTER → 2024-09-27 | Outpatient (CLI) | payer MEDICARE, MEDICAID ==
[~2024-09-27] MED LIST changes: +META28.32 PO; +MIRA3350 PO
[2024-09-27 13:34] LABS: PLATELET COUNT, AUTOMATED 192 10^3/uL (150-450)
[2024-09-27 14:55] LABS: ESTIMATED AVERAGE GLUCOSE 114.0 MG/DL (60-110)
[2024-09-27 15:20] LABS: ALT/SGPT 32 U/L (7.0-40); AST/SGOT 21 U/L (<34); CALCIUM LEVEL 9.3 MG/DL (8.3-10.6); CARBON DIOXIDE LEVEL 30 MMOL/L (20-31); CHLORIDE LEVEL 100 MMOL/L (98-107); CHOLESTEROL LEVEL 87 MG/DL (<200); CHOLESTEROL RISK RATIO 1.76 (<5); CREATININE FOR GFR 0.80 MG/DL (0.70-1.30); GLOMERULAR FILTRATION RATE > 90.0 (>42); LDL CHOLESTEROL 23.8 MG/DL (<100); MAGNESIUM LEVEL 1.6 MG/DL (1.8-2.4); NON-HDL-C 37.6 MG/DL; POTASSIUM SERUM 4.2 MMOL/L (3.5-5.1); SODIUM LEVEL 142 MMOL/L (136-145); TRIGLYCERIDES LEVEL 69 MG/DL (<150)
[2024-09-27 15:22] LABS: FREE T4 1.23 NG/DL (0.89-1.76)
== END ==
LOC: M PLALAB 09:37
PROVIDERS: ATTEND Family Medicine
DX: I10 Essential (primary) hypertension (principal); D50.9 Iron deficiency anemia, unspecified